=== PATIENT | male | born 1955 | race Caucasian/White ===

== ENCOUNTER 2020-07-21 13:21 | Emergency (ER) | payer MEDICAID, SELFPAY ==
--- NOTE | ~2020-07-21 | XR_ITS ---
EXAMINATION: XR CHEST CLINICAL INFORMATION: Cough. History of recent overdose. COMPARISON: Previous chest x-ray April 2013 TECHNIQUE: Frontal view of the chest was obtained. FINDINGS: No significant abnormality is noted involving the heart, lungs, mediastinum, bony thorax or soft tissues. XR/XR chest 1V IMPRESSION: Unremarkable examination.
--- NOTE | ~2020-07-21 | CT_ITS ---
EXAMINATION: CT HEAD WITHOUT CONTRAST CLINICAL INFORMATION: Fall COMPARISON: None TECHNIQUE: Contiguous axial imaging was performed from the skull base to vertex without intravenous administration of contrast. This CT examination was performed using dose optimization techniques as appropriate, variously including the following: *Automated exposure control *Adjustment of mA and/or kV according to patient size (this includes techniques or standardized protocols for targeted exams where dose is matched to indication/reason for exam; i.e. extremities or head) *Use of iterative reconstruction technique DLP: 791 mGy-cm FINDINGS: There is no evidence of an extra-axial collection. There is no evidence of intra-axial or extra-axial hemorrhage. There are postsurgical changes with aneurysm clips in the region of the left LANDON and MCA. There is old infarct or encephalomalacia seen left frontal and temporal lobes and left basal ganglia. There is ex vacuo dilatation of the frontal horn of the left ventricle. The ventricles and extra-axial CSF spaces are otherwise appropriate. There is a new area low-attenuation seen in the subcortical white matter of the left frontal and anterior parietal lobe with small calcification suggestive of an infarct. This appears old but is new in the intervertebral from 2017 exam. No mass, mass effect or acute infarct is seen. There are left temporal and frontal bone craniotomy defect are unchanged. No skull fracture is seen. There are mild inflammatory changes seen in the right frontal and bilateral ethmoid sinuses. Visualized mastoid air cells, paranasal sinuses and middle ears are otherwise clear. CT/CT head/brain wo con IMPRESSION: No acute findings. Postsurgical change with aneurysm clips in the region of the left LANDON and MCA and old infarct or encephalomalacia in the left frontal and temporal lobes and left basal ganglia unchanged from previous exam. Infarct in the left posterior frontal or anterior parietal lobe with a small calcification that does not appear acute but is new in the interval from 2017 exam.
--- NOTE | 2020-07-21 13:36 | ED_ITS ---
HPI - Overdose General Chief Complaint: Overdose Stated Complaint: unresponsive--narcan effective Time Seen by Provider: 07/21/20 13:36 Source: patient, EMS and facilities locator Mode of arrival: EMS Limitations: no limitations History of Present Illness MD complaint: accidental overdose Onset (ago): minute(s) Timing confirmed by: other Context: Accidental Overdose: wanted to get high and uncertain what happened Associated symptoms: other (bystanders saw him fall while working - admin 4mg IN Narcan and he woke up immediately) Treatments Prior to Arrival: narcan Related Data Allergies Allergy/AdvReac Type Severity Reaction Status Date / Time aspirin [ASA] Allergy Unknown UNKNOWN Unverified 10/30/19 18:56 Review of Systems Review of Systems: Constitutional : No Weight loss, No Fever, No Chills, No Fatigue, No Malaise ENT/Mouth : No sore throat, No Rhinorrhea Eyes: No Eye Pain, No Swelling, No Redness Cardiovascular : No Chest Pain, No SOB, No Dyspnea on Exertion, No Orthopnea, No Edema, No Palpitations Respiratory : No Cough, No Sputum, No Wheezing Gastrointestinal : No Nausea, No Vomiting, No Diarrhea, No Constipation, No abdominal Pain, No Hematochezia, No Melena Genitourinary : No Dysuria, No Urinary Frequency, No Hematuria, Musculoskeletal : No joint pain, No Myalgias, No Joint Swelling Skin : No Skin Lesions, No rash Neuro : No Weakness, No Numbness, No Dizziness, No Headache Psych : No Anxiety/Panic, No Depression Heme/Lymph: No Bruising, No Bleeding,No Lymphadenopathy Endocrine : No Polyuria, No Polydipsia All other systems reviewed and are negative [facility] Past Medical History Attestation statement: The following information was validated with the patient. Medical History CVA (cerebral vascular accident) HTN (hypertension) Migraines Seizure Surgical History H/O craniotomy Social History Social History (Updated 07/21/20 @ 13:41 by Stormy Fowler DO) Patient Tobacco Use Status: Current everyday Tobacco user Substance Use Type: Marijuana and Opiates Advance Directives: No Advance Directives Information Provided: No Physical Exam Vital Signs: Vital Signs: Last Vital Signs Pulse 78 07/21/20 15:49 Resp 18 07/21/20 15:49 BP 94/57 L 07/21/20 15:49 Pulse Ox 94 07/21/20 15:49 Body Mass Index 32.5 Appearance: Alert. Oriented X3. No acute distress. Eyes: Pupils equal, round and reactive to light. ENT: Pharynx normal. Neck: Normal inspection. Neck supple. CVS: Normal heart rate and rhythm. Pulses normal. Respiratory: No respiratory distress. Breath sounds normal. Abdomen: Soft and nontender. Skin: Skin warm and sweaty. Normal skin color. Normal skin turgor. Extremities: No lower extremity edema. No calf ttp Neuro: Oriented X 3. R sided hemiparesis No sensory deficit. Course Course Course Narrative: sats are low and lung sounds diminished neb and CXR ordered, he is awake at this time looking around sats seem improved, BP running low but MAP good, still slightly sleepy 94% on RA currently signed out pending full clinical sobriety MDM - Overdose MDM Narrative Medical decision making narrative: 64 yo male with hx of HTN, seizures, migraines, CVA with R sided hemiparesis admits to snorting something and then bystanders saw him fall while walking responded well to IN narcan, he is not sure if he is on blood thinners but he notes he has had multiple strokes in the past, his main complaint is that he was worried he stole the large amount of watt he had in his wallet - it is there on arrival to ED, will obtain CT head to r/o ICH, observe Discharge Plan Discharge Clinical Impression: Drug overdose Patient Disposition: Home, Self-Care Instructions: Adult Overdose (ED) Additional Instructions: return to ED for any worsening symptoms or concerns stop doing drugs Print Language: English
[2020-07-21 13:54] VITALS: BP 102/77; BP 150/70; PULSE 100; PULSE 102; RESP 16; O2SAT 90; O2SAT 95; BMI 32.5
[2020-07-21] MEDS: Albuterol Sulfate (0.083%) 2.5 MG/3 ML VIAL.NEB INHALE (14:05)
[2020-07-21 14:07] VITALS: PULSE 81; O2SAT 88
[2020-07-21 15:49] VITALS: BP 94/57; PULSE 78; RESP 18; O2SAT 94
--- NOTE | 2020-07-21 17:31 | PC.NURSE ---
attempted to ambulate patient to hallway bed. client was 2 assist very unsteady on feet. client had previous hx of stroke. client states he usually uses cane which he does not have with him. major fall risk. dr reeder made aware that client will probably need PT/OT. client given soft food at this time due to hx of stroke difficulty swallowing.
--- NOTE | 2020-07-21 17:58 | MHC.RECOVSUP ---
? Reason for consult Recovery Support o Current location: ED6 o Identified substance use concern: Heroin - Overdose - Support ? Intervention: o <del>ATS</del> <del>bed</del> <del>search</del> <del>started/completed/in</del> <del>process</del> <del>o</del> <del>MAT</del> <del>started</del> <del>or</del> <del>to</del> <del>be</del> <del>started</del> <del>o</del> <del>Community</del> <del>resources</del> <del>provided</del> <del>o</del> <del>Harm</del> <del>reduction</del> <del>discussion</del> ? Plan: <del>o</del> <del>Referral</del> <del>to</del> <del>[facility]</del> <del>o</del> <del>Bed</del> <del>search</del> <del>in</del> <del>progress</del> <del>to</del> <del>o</del> <del>Follow</del> <del>up</del> <del>tomorrow</del> <del>o</del> <del>Patient</del> <del>awaiting</del> <del>crisis</del> <del>evaluation</del> <del>o</del> <del>Patient</del> <del>to</del> <del>follow</del> <del>up</del> <del>with</del> <del>[facility]</del> <del>after</del> <del>discharge</del> ? Additional information: unable to communicate with patient at the moment..
--- NOTE | 2020-07-21 18:26 | PHA.MEDREC ---
Pharmacy Consult ? Medication Reconciliation Pharmacy unable to complete the medication reconciliation. pt is unable to verify current meds, states that he was in a hospital in [facility] but unable to remember name. Med rec was pulled from [facility] last fill was 06/16/2019. Provider notified
--- NOTE | 2020-07-21 18:47 | PC.NURSE ---
CLIENT HAD SMALL EPISODE OF VOMITTING. THIS RN WITNESSED HIM STICK HIS FINGER DOWN HIS THROAT. CLIENT DENIED WANTING ANYTHING FOR NAUSEA.
[2020-07-21 19:18] VITALS: BP 118/69; PULSE 94; RESP 16; O2SAT 94
[2020-07-21 20:26] VITALS: BP 113/83; PULSE 95; RESP 18; O2SAT 95
--- NOTE | 2020-07-21 20:55 | PC.NURSE ---
client requesting something for headache. neuro intact for baseline
--- NOTE | 2020-07-21 21:01 | PC.NURSE ---
DR SÁNCHEZ AWARE THAT CLIENT WANTS SOMETHING FOR HEADACHE AND HIS NIGHT TIME MEDICATIONS. MEDICATIONS HAVE BEEN VERIFIED BY PHARMACY AT THIS TIME.
[2020-07-21] MEDS: Acetaminophen 325 MG TABLET 650 MG PO (21:32)
[2020-07-21 22:28] VITALS: BP 128/78; PULSE 78; RESP 18; O2SAT 95
--- NOTE | 2020-07-21 22:35 | MHC.CM.ED ---
CM met with patient at request of Dr. Looney. Pt here for drug OD. Received bystander narcan. Pt [place] speaking and ophthalmic medical technician used for conversation.Pt denies drug use and states he tripped. Pt has long standing hx of polysubstance abuse. Pt has had 2 strokes and pt states he was treated at the [facility] and then transferred to [facility] for rehab. Pt states he was there for 10 months and was d/c 4 days ago. Pt is homeless. Staying at [facility]. Has a business card for the senior living. States he was living with his son prior to his stroke, but son has moved and the telephone number on file is not correct. Pt does not know son's telephone number. CM called the number on file. It went to [employer]. Message left to return call. Olivier Ch Jr - [phone] is the number we have on file. [address] [phone]. Consult was obtained at 2200. Interview completed at 2230. Will need to call SNF in am to obtain records, contact information and insurance information. Pt denies use of DME or any services. Pt states he has no other family to contact. Pt aware that PT will evaluate him in the am. Pt states he saw a doctor last week at [facility], however, he also said that he was d/c from [facility] 4 days ago. Pt was very rambling in his speech and had some difficulty answering questions. Pt states he takes medications, but does not know what they are. States his medications are in a bag at the [facility]. Pt stated many times that he plans to go to [place] to see his parents before they . Pt is unsure if he has [employer] or any insurance. SS# [id number]. Registration ran pt SS number and system tells him the pt is not eligible for [facility]. Dr. Chin is aware of above. CM will follow for d/c needs.
--- NOTE | 2020-07-21 23:34 | PC.NURSE ---
PT REFUSED COVID SWAB SEVERAL TIMES.
--- NOTE | 2020-07-22 02:27 | PC.NURSE ---
PT NOW AMBULATORY WITHOUT ASSIST. PT REFUSING TO SIT BACK IN CHAIR, TALKING WITH PT IN ROOM 8.
[2020-07-22 02:49] LABS: Basophils Percent Auto 0.1 % (0-2); Hematocrit 37.8 % (42-52); Hemoglobin 12.2 g/dl (14.0-18.0); Imm Gran Abs Auto 0.04 X10*3/uL (0.00-0.03); Imm Gran Pct Auto 0.2 % (0.0-0.4); Lymphocytes Absolute Auto 0.5 X10*3/uL (1.2-4.9); Lymphocytes Percent Auto 2.8 % (20-40); MANUAL DIFF FLAG SCAN; Mean Corpuscular HGB Conc 32.3 g/dl (31.0-36.0); Mean Corpuscular Hemoglobin 29.9 pg (27.0-33.0); Mean Corpuscular Volume 92.6 fL (80-98); Mean Platelet Volume 10.2 fL (9.4-12.4); Monocytes Absolute Auto 0.6 X10*3/uL (0.1-1.2); Monocytes Percent Auto 3.9 % (2-11); Neutrophils Absolute Auto 15.2 X10*3/uL (2.0-8.3); Platelet Count 187 X10*3/uL (160-400); Red Blood Count 4.08 X10*6/uL (4.60-5.80); Red Cell Distribution Width 14.1 % (11.0-16.0); SCAN SMEAR FLAG 1; White Blood Count 16.4 X10*3/uL (4.8-10.8)
[2020-07-22 03:06] LABS: SLIDE REVIEW VERIFIED
[2020-07-22 03:07] LABS: Ammonia 32 umol/L (13-55)
[2020-07-22 03:08] LABS: Ethanol < 10 mg/dL
[2020-07-22 03:10] LABS: Alanine Aminotransferase 26 U/L (0-40); Albumin Level 4.6 g/dL (3.5-5.0); Alkaline Phosphatase 65 U/L (39-117); Anion Gap 13 (12-20); Aspartate Amino Transferase 20 U/L (5-37); Bilirubin Direct 0.4 mg/dL (0.0-0.5); Bilirubin Total 0.9 mg/dL (0.0-1.0); Blood Urea Nitrogen 23 mg/dL (9-16); Calcium 9.1 mg/dL (8.4-10.2); Carbon Dioxide 24 mmol/L (22-29); Chloride 105 mmol/L (96-108); Creatinine Clr Calc Pharmacy 81.9; Estimated Glomerular Filt Rate > 60; Glucose Random 169 mg/dL (60-115); Potassium 4.3 mmol/L (3.3-5.1); Sodium 138 mmol/L (135-145)
[2020-07-22 05:48] VITALS: BP 146/72; PULSE 68; RESP 16; O2SAT 95
[2020-07-22 07:11] VITALS: BP 146/72; PULSE 68; O2SAT 95
--- NOTE | 2020-07-22 07:56 | PC.NURSE ---
Physical therapy to bedside for evaluation and will recommend short term rehab. science interpreter to chairside and pt declines rehab placement and wants to leave. Pt confirms he is homeless and wants to visit his mother in [place]. Pt confirms baseline right sided weakness from prior CVA.
[2020-07-22] MEDS: Acetaminophen 325 MG TABLET 975 MG PO (08:12)
--- NOTE | 2020-07-22 08:41 | PC.NURSE ---
Dr Kianna henry with acidizer to prior to ?discharge as pt declines short term rehab placement
[2020-07-22 08:47] VITALS: BP 110/72; PULSE 74; RESP 16; O2SAT 97
--- NOTE | 2020-07-22 08:56 | PC.NURSE ---
self pay taxi, this rn called, pt awaiting in [place]
--- NOTE | 2020-07-22 12:37 | MHC.CM.ED ---
Physical therapy eval completed. Short term rehab is recommended. Received notification that patient is refusing rehab and left ER.
== END 2020-07-22 08:57 | disposition home or self-care (01) ==
PROVIDERS: Emergency Medicine; Emergency Provider Emergency Medicine Emergency Medical Services
DX: T50.901A Poisoning by unspecified drugs, medicaments and biological substances, accidental (unintentional), initial encounter (principal); Y92.89 Other specified places as the place of occurrence of the external cause; R05 Cough; I10 Essential (primary) hypertension; I69.351 Hemiplegia and hemiparesis following cerebral infarction affecting right dominant side; R26.81 Unsteadiness on feet; Z59.0 Homelessness
CPT/HCPCS: 36415; 70450; 71045; 80048; 80076; 82077; 82140; 85025; 94640; 97162; 99285

== ENCOUNTER 2020-10-23 13:50 | Emergency (ER) | payer MEDICARE, MEDICAID, SELFPAY ==
--- NOTE | ~2020-10-23 | XR_ITS ---
EXAMINATION: XR RIBS, LEFT CLINICAL INFORMATION: Left rib tenderness status post fall. COMPARISON: 07/21/2020 chest radiograph. TECHNIQUE: 3 views of the left ribs were obtained along with a PA view of the chest. A skin marker was placed over the anterolateral left ninth rib. FINDINGS: Lungs are clear. No consolidation, pneumothorax, or pleural effusion. The cardiomediastinal silhouette and pulmonary vasculature are normal. Osseous structures are unremarkable. Ribs are intact. No fractures are identified. XR/XR ribs LT min 3V w CXR1V IMPRESSION: 1. No acute cardiopulmonary process. 2. No overt acute left rib fracture.
--- NOTE | ~2020-10-23 | CT_ITS ---
EXAMINATION: CT HEAD WITHOUT CONTRAST CLINICAL INFORMATION: EtOH, fall and [id number] versus seizure. COMPARISON: CT brain 6922 1 TECHNIQUE: Contiguous axial imaging was performed from the skull base to vertex without intravenous administration of contrast. This CT examination was performed using dose optimization techniques as appropriate, variously including the following: *Automated exposure control *Adjustment of mA and/or kV according to patient size (this includes techniques or standardized protocols for targeted exams where dose is matched to indication/reason for exam; i.e. extremities or head) *Use of iterative reconstruction technique DLP: 841 mGy-cm FINDINGS: There is no acute intra-axial, extra-axial bleed, masses, collection midline shift. There is a left anterior frontal temporal lobe encephalomalacia and temporal craniotomy change from previous intervention. Also visualized is left basal ganglia old infarct. An aneurysm clip is seen in the left MCA calcification and left A2 anterior cerebral arteries segment.. No recurrent mass effect seen. The lateral ventricles are asymmetrical with ex vacuo dilatation of left frontal horn lateral ventricle. The ventricles are normal in size. There is no abnormal attenuation within the brain parenchyma. The osseous structures and soft tissues are normal. The mastoid air cells and visualized portions of the paranasal sinuses are well aerated. CT/CT head/brain wo con IMPRESSION: No acute intracranial process seen. There are 2 left aneurysm clips with left frontoparietal encephalomalacia and temporal lobe craniotomy changes. Small left basal ganglia old infarct.
[2020-10-23 13:56] VITALS: BP 118/91; PULSE 112; RESP 14; TEMP 36.7; O2SAT 94; BMI 25.8
--- NOTE | 2020-10-23 13:59 | ECG_ITS ---
Test Reason : SYNCOPE Blood Pressure : / mmHG Vent. Rate : 082 BPM Atrial Rate : 082 BPM P-R Int : 184 ms QRS Dur : 114 ms QT Int : 416 ms P-R-T Axes : 030 -42 036 degrees QTc Int : 486 ms Normal sinus rhythm Left axis deviation Prolonged QT Abnormal ECG When compared with ECG of 05-MAY-2016 16:46, Heart rate has increased QT has lengthened Referred By: Rani Looney Electronically Signed By:LORIE RALPH
--- NOTE | 2020-10-23 14:03 | ED.GENADULT ---
HPI - General Adult General Chief complaint: ETOH/Substance Use Stated complaint: OVERDOSE Time Seen by Provider: 10/23/20 13:51 Source: patient and EMS Mode of arrival: EMS Limitations: no limitations History of Present Illness HPI narrative: Patient comes to the emergency room by EMS. Patient was found unresponsive, bystanders gave him 60 mg of intranasal Narcan. Patient did wake up. Patient denies using drugs other than marijuana, admits to drinking alcohol. Patient complaining of a headache. Of note, patient has had similar episodes in the past. 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 Previously, patient was on Depakote. alcohol level were negative, urine toxicology was positive for benzodiazepines. Related Data Home Medications Medication Instructions Recorded Confirmed atenolol 50 mg tablet 50 mg PO DAILY 07/21/20 chlorthalidone 50 mg tablet 50 mg PO DAILY 07/21/20 diltiazem HCl 120 mg 120 mg PO DAILY 07/21/20 capsule,extended release 24 hr fluoxetine 20 mg capsule 40 mg PO DAILY 07/21/20 folic acid 1 mg tablet 1 mg PO DAILY 07/21/20 gabapentin 300 mg capsule 300 mg PO BEDTIME 07/21/20 lisinopril 20 mg tablet 20 mg PO DAILY 07/21/20 multivitamin 1 tab PO DAILY 07/21/20 thiamine HCl (vitamin B1) 100 mg 100 mg PO DAILY 07/21/20 tablet (Vitamin B-1) zolpidem 10 mg tablet (Ambien) 10 mg PO BEDTIME 07/21/20 Allergies Allergy/AdvReac Type Severity Reaction Status Date / Time aspirin [ASA] Allergy Unknown UNKNOWN Unverified 10/30/19 18:56 Review of Systems Review of Systems: Constitutional : No Weight loss, No Fever, No Chills, No Night Sweats, No Fatigue, No Malaise ENT/Mouth : No Hearing loss, No Ear Pain, No Nasal Congestion, No Sinus Pain, No Hoarseness, No sore throat, No Rhinorrhea, No Swallowing Difficulty Eyes: No Eye Pain, No Swelling, No Redness, No Foreign Body, No Discharge, No Vision Changes Cardiovascular : No Chest Pain, No SOB, No Dyspnea on Exertion, No Orthopnea, No Edema, No Palpitations Respiratory : No Cough, No Sputum, No Wheezing, No Smoke Exposure, No Dyspnea Gastrointestinal : No Nausea, No Vomiting, No Diarrhea, No Constipation, No abdominal Pain, No Hematochezia, No Melena Genitourinary : no irregular bleeding, No Dysuria, No Urinary Frequency, No Hematuria, No Urinary Incontinence, No Urgency, No Flank Pain, No Urinary Flow Changes, No Hesitancy Musculoskeletal : No joint pain, No Myalgias, No Joint Swelling Skin : No Skin Lesions, No rash Neuro : No Weakness, No Numbness, No Paresthesias, found unconscious, complaining of a headache Psych : No Anxiety/Panic, No Depression, No SI/HI/AH/VH, No Social Issues, Heme/Lymph: No Bruising, No Bleeding,No Lymphadenopathy Endocrine : No Polyuria, No Polydipsia, No Temperature Intolerance [facility] Past Medical History Medical History CVA (cerebral vascular accident) HTN (hypertension) Migraines Seizure Surgical History H/O craniotomy Social History Social History (Updated 07/21/20 @ 13:41 by tSormy Fowler DO) Alcohol intake: current Patient Tobacco Use Status: Current everyday Tobacco user Use of substances other than those prescribed or required for medical reasons: Refusing to respond Substance Use Type: Marijuana and Opiates Advance Directives: No Advance Directives Information Provided: No Physical Exam Vital Signs: Vital Signs: Last Vital Signs Temp 98.0 F 10/23/20 13:56 Pulse 112 H 10/23/20 13:56 Resp 14 10/23/20 13:56 BP 118/91 H 10/23/20 13:56 Pulse Ox 94 10/23/20 13:56 Body Mass Index 25.8 Const: Other: Appearance: Alert. Oriented X3. Vomiting Eyes: Pupils equal, round and reactive to light. ENT: Pharynx normal. Neck: Normal inspection. Neck supple. No lymph nodes noted. No crepitus CVS: Normal heart rate and rhythm. Pulses normal. Normal S1 and S2 Respiratory: No respiratory distress. Breath sounds normal. No Wheezing. No rales Abdomen: Soft and nontender. No rigidity. No distention. Skin: Skin warm , slightly diaphoretic, slightly pale Extremities: No lower extremity edema. No Lacerations. No Rash Neuro: Oriented X 3. No motor deficit. No sensory deficit. Moving all extermities. No slurred speech. Course Course Course Narrative: At this time, it is unclear what really happened to the patient, patient has history of seizures. Patient admits to using alcohol. We will go ahead and do a cardiac/neurological workup Patient's lactic acid is 6.0, patient likely did have a seizure. Sepsis is not suspected. Per previous records, patient is supposed to be taking 500 mg Depakote twice a day. When I spoke to the patient, patient states that he is not aware that he is supposed to be taking medication for seizures. However, per previous notes, this has happened in the past, patient is as if he is taking seizure medications and response and he is not aware of this. Patient was given 2 L of normal saline and p.o. divalproex. A prescription has been left ready for the patient. At this time, patient is alert and oriented x3, not postictal. Drugs of abuse and lactic acid 2. Is pending. Sign-out given to Dr. Hutchison Medical Decision Making Lab Data Result diagrams: 10/23/20 14:16 10/23/20 14:16 Labs: Lab Results 10/23/20 10/23/20 10/23/20 Range/Units 14:08 14:16 14:16 WBC 6.6 (4.8-10.8) X10*3/uL RBC 4.34 L (4.60-5.80) X10*6/uL Hgb 12.8 L (14.0-18.0) g/dl Hct 40.0 L (42-52) % MCV 92.2 (80-98) fL MCH 29.5 (27.0-33.0) pg MCHC 32.0 (31.0-36.0) g/dl RDW 14.0 (11.0-16.0) % Plt Count 210 (160-400) X10*3/uL MPV 10.3 (9.4-12.4) fL Immature Gran % (Auto) 0.5 H (0.0-0.4) % Neut % (Auto) 67.0 (45-73) % Lymph % (Auto) 21.2 (20-40) % Rich % (Auto) 8.7 (2-11) % Eos % (Auto) 1.8 (0-4) % Baso % (Auto) 0.8 (0-2) % Lymph # (Auto) 1.4 (1.2-4.9) X10*3/uL Rich # (Auto) 0.6 (0.1-1.2) X10*3/uL Eos # (Auto) 0.1 (0.0-0.4) X10*3/uL Baso # (Auto) 0.1 (0.0-0.2) X10*3/uL Abs Immat Gran (auto) 0.03 (0.00-0.03) X10*3/uL Absolute Neuts (auto) 4.5 (2.0-8.3) X10*3/uL Absolute Nucleated RBC 0.000 (0.0-0.012) X10*3/uL Nucleated RBC % (auto) 0.0 (0.0-0.2) /100WBC PT (9.9-13.0) SEC INR (0.9-1.1) Sodium 140 (135-145) mmol/L Potassium 3.4 D (3.3-5.1) mmol/L Chloride 104 (96-108) mmol/L Carbon Dioxide 18 L (22-29) mmol/L Anion Gap 21 H (12-20) BUN 19 H (9-16) mg/dL Creatinine 1.15 (0.5-1.4) mg/dL Estim Creat Clear Calc 66.1 Estimated GFR > 60 POC Glucose 141 H (60-115) mg/dL Random Glucose 144 H (60-115) mg/dL Lactic Acid (0.5-2.0) mmol/L Calcium 9.9 D (8.4-10.2) mg/dL Total Bilirubin 0.7 (0.0-1.0) mg/dL Direct Bilirubin 0.3 (0.0-0.5) mg/dL AST 21 (5-37) U/L ALT 16 (0-40) U/L Alkaline Phosphatase 65 (39-117) U/L Troponin I High Sens (<3.5-35.0) ng/L Total Protein 6.8 (6.5-8.0) g/dL Albumin 4.3 (3.5-5.0) g/dL Ethyl Alcohol mg/dL 10/23/20 10/23/20 10/23/20 Range/Units 14:16 14:16 14:29 WBC (4.8-10.8) X10*3/uL RBC (4.60-5.80) X10*6/uL Hgb (14.0-18.0) g/dl Hct (42-52) % MCV (80-98) fL MCH (27.0-33.0) pg MCHC (31.0-36.0) g/dl RDW (11.0-16.0) % Plt Count (160-400) X10*3/uL MPV (9.4-12.4) fL Immature Gran % (Auto) (0.0-0.4) % Neut % (Auto) (45-73) % Lymph % (Auto) (20-40) % Rich % (Auto) (2-11) % Eos % (Auto) (0-4) % Baso % (Auto) (0-2) % Lymph # (Auto) (1.2-4.9) X10*3/uL Rich # (Auto) (0.1-1.2) X10*3/uL Eos # (Auto) (0.0-0.4) X10*3/uL Baso # (Auto) (0.0-0.2) X10*3/uL Abs Immat Gran (auto) (0.00-0.03) X10*3/uL Absolute Neuts (auto) (2.0-8.3) X10*3/uL Absolute Nucleated RBC (0.0-0.012) X10*3/uL Nucleated RBC % (auto) (0.0-0.2) /100WBC PT 12.4 (9.9-13.0) SEC INR 1.1 (0.9-1.1) Sodium (135-145) mmol/L Potassium (3.3-5.1) mmol/L Chloride (96-108) mmol/L Carbon Dioxide (22-29) mmol/L Anion Gap (12-20) BUN (9-16) mg/dL Creatinine (0.5-1.4) mg/dL Estim Creat Clear Calc Estimated GFR POC Glucose (60-115) mg/dL Random Glucose (60-115) mg/dL Lactic Acid (0.5-2.0) mmol/L Calcium (8.4-10.2) mg/dL Total Bilirubin (0.0-1.0) mg/dL Direct Bilirubin (0.0-0.5) mg/dL AST (5-37) U/L ALT (0-40) U/L Alkaline Phosphatase (39-117) U/L Troponin I High Sens 4.9 (<3.5-35.0) ng/L Total Protein (6.5-8.0) g/dL Albumin (3.5-5.0) g/dL Ethyl Alcohol < 10 mg/dL 10/23/20 Range/Units 14:29 WBC (4.8-10.8) X10*3/uL RBC (4.60-5.80) X10*6/uL Hgb (14.0-18.0) g/dl Hct (42-52) % MCV (80-98) fL MCH (27.0-33.0) pg MCHC (31.0-36.0) g/dl RDW (11.0-16.0) % Plt Count (160-400) X10*3/uL MPV (9.4-12.4) fL Immature Gran % (Auto) (0.0-0.4) % Neut % (Auto) (45-73) % Lymph % (Auto) (20-40) % Rich % (Auto) (2-11) % Eos % (Auto) (0-4) % Baso % (Auto) (0-2) % Lymph # (Auto) (1.2-4.9) X10*3/uL Rich # (Auto) (0.1-1.2) X10*3/uL Eos # (Auto) (0.0-0.4) X10*3/uL Baso # (Auto) (0.0-0.2) X10*3/uL Abs Immat Gran (auto) (0.00-0.03) X10*3/uL Absolute Neuts (auto) (2.0-8.3) X10*3/uL Absolute Nucleated RBC (0.0-0.012) X10*3/uL Nucleated RBC % (auto) (0.0-0.2) /100WBC PT (9.9-13.0) SEC INR (0.9-1.1) Sodium (135-145) mmol/L Potassium (3.3-5.1) mmol/L Chloride (96-108) mmol/L Carbon Dioxide (22-29) mmol/L Anion Gap (12-20) BUN (9-16) mg/dL Creatinine (0.5-1.4) mg/dL Estim Creat Clear Calc Estimated GFR POC Glucose (60-115) mg/dL Random Glucose (60-115) mg/dL Lactic Acid 6.0 H* (0.5-2.0) mmol/L Calcium (8.4-10.2) mg/dL Total Bilirubin (0.0-1.0) mg/dL Direct Bilirubin (0.0-0.5) mg/dL AST (5-37) U/L ALT (0-40) U/L Alkaline Phosphatase (39-117) U/L Troponin I High Sens (<3.5-35.0) ng/L Total Protein (6.5-8.0) g/dL Albumin (3.5-5.0) g/dL Ethyl Alcohol mg/dL Imaging Data CT scan - head: Radiologist's impression: There is no acute intra-axial, extra-axial bleed, masses, collection midline shift. There is a left anterior frontal temporal lobe encephalomalacia and temporal craniotomy change from previous intervention. Also visualized is left basal ganglia old infarct. An aneurysm clip is seen in the left MCA calcification and left A2 anterior cerebral arteries segment.. No recurrent mass effect seen. The lateral ventricles are asymmetrical with ex vacuo dilatation of left frontal horn lateral ventricle. The ventricles are normal in size. There is no abnormal attenuation within the brain parenchyma. The osseous structures and soft tissues are normal. The mastoid air cells and visualized portions of the paranasal sinuses are well aerated. ? CT/CT head/brain wo con IMPRESSION: No acute intracranial process seen. ? There are 2 left aneurysm clips with left frontoparietal encephalomalacia and temporal lobe craniotomy changes. Small left basal ganglia old infarct. ECG Data Attestation: I personally reviewed and interpreted this ECG as follows: (Sinus rhythm, heart rate 82, segment depression or elevation, no T-wave inversion, QTC 486) Discharge Plan Discharge Clinical Impression: Seizure Prescriptions: No Action multivitamin Tablet 1 tab PO DAILY RF: 0 lisinopril 20 mg Tablet 20 mg PO DAILY RF: 0 thiamine HCl (vitamin B1) [Vitamin B-1] 100 mg Tablet 100 mg PO DAILY RF: 0 chlorthalidone 50 mg Tablet 50 mg PO DAILY RF: 0 gabapentin 300 mg Capsule 300 mg PO BEDTIME RF: 0 diltiazem HCl 120 mg Capsule,Extended Release 24hr 120 mg PO DAILY RF: 0 folic acid 1 mg Tablet 1 mg PO DAILY RF: 0 zolpidem [Ambien] 10 mg Tablet 10 mg PO BEDTIME RF: 0 fluoxetine 20 mg Capsule 40 mg PO DAILY RF: 0 atenolol 50 mg Tablet 50 mg PO DAILY RF: 0
[2020-10-23 14:11] LABS: Glucose, Whole Blood 141 mg/dL (60-115)
[2020-10-23 14:19] LABS: MANUAL DIFF FLAG NO
[2020-10-23] MEDS: ondansetron HCL 4 MG/2 ML VIAL IVPUSH (14:20)
[2020-10-23] MEDS: 0.9 % Sodium Chloride 1,000 ML 999 ML IVCONT ×2 (14:20→16:43)
[2020-10-23 14:22] LABS: Basophils Absolute Auto 0.1 X10*3/uL (0.0-0.2); Basophils Percent Auto 0.8 % (0-2); Eosinophils Absolute Auto 0.1 X10*3/uL (0.0-0.4); Eosinophils Percent Auto 1.8 % (0-4); Hemoglobin 12.8 g/dl (14.0-18.0); Imm Gran Abs Auto 0.03 X10*3/uL (0.00-0.03); Imm Gran Pct Auto 0.5 % (0.0-0.4); Lymphocytes Absolute Auto 1.4 X10*3/uL (1.2-4.9); Lymphocytes Percent Auto 21.2 % (20-40); Mean Corpuscular Hemoglobin 29.5 pg (27.0-33.0); Mean Corpuscular Volume 92.2 fL (80-98); Mean Platelet Volume 10.3 fL (9.4-12.4); Monocytes Absolute Auto 0.6 X10*3/uL (0.1-1.2); Monocytes Percent Auto 8.7 % (2-11); Neutrophils Absolute Auto 4.5 X10*3/uL (2.0-8.3); Platelet Count 210 X10*3/uL (160-400); Red Blood Count 4.34 X10*6/uL (4.60-5.80); White Blood Count 6.6 X10*3/uL (4.8-10.8)
[2020-10-23 14:42] LABS: Troponin-I High Sensitivity 4.9 ng/L (<3.5-35.0)
[2020-10-23 14:43] LABS: INTERNATIONAL NORM RATIO 1.1 (0.9-1.1); Prothrombin Time 12.4 SEC (9.9-13.0)
[2020-10-23 14:44] LABS: Ethanol < 10 mg/dL
[2020-10-23 14:47] LABS: Alanine Aminotransferase 16 U/L (0-40); Albumin Level 4.3 g/dL (3.5-5.0); Alkaline Phosphatase 65 U/L (39-117); Anion Gap 21 (12-20); Aspartate Amino Transferase 21 U/L (5-37); Bilirubin Direct 0.3 mg/dL (0.0-0.5); Bilirubin Total 0.7 mg/dL (0.0-1.0); Blood Urea Nitrogen 19 mg/dL (9-16); Calcium 9.9 mg/dL (8.4-10.2); Carbon Dioxide 18 mmol/L (22-29); Chloride 104 mmol/L (96-108); Creatinine Clr Calc Pharmacy 66.1; Estimated Glomerular Filt Rate > 60; Glucose Random 144 mg/dL (60-115); Potassium 3.4 mmol/L (3.3-5.1); Sodium 140 mmol/L (135-145); Total Protein 6.8 g/dL (6.5-8.0)
[2020-10-23 16:34] LABS: Reflex Lactate? Lactic Acid Added
[2020-10-23 17:27] LABS: ~Lactic Acid-LAB USE ONLY 2.3 mmol/L (0.5-2.0)
[2020-10-23] MEDS: Divalproex Sodium 500 MG TABLET.DR 1000 MG PO (17:30)
[2020-10-23 19:04] LABS: Reflex Lactate? 2 Y
--- NOTE | 2020-10-23 19:38 | PC.NURSE ---
note incomplete but this RN had to switch screens to answer Dr Hutchison if pt had rec'd chest xr per Dr Looney' orders. Pt with seizure hx and had seizure today witnessed by family. This RN to Dr Hutchison who rec'd sign out from Dr Looney. Dr Hutchison reports he will assess pt and dispo pt. While this RN at bedside, Dr Hutchison arrives at bedside. Per Dr Hutchison, plan for chest XR and PO pain meds. Pt expresses understanding, is agreeable to plan. Pt remains on bedside cardiac rehabilitation specialist, VSS. Per Dr Hutchison, no need to finish IVF at this time as provider believes lactic was elevated 2/2 seizure activity. Stretcher in low locked position, rails raised, call farley within reach Original Note: This RN rec'd report from Olimpia Garza RN. Per Olimpia in report, pt removed PIV prior to completion of sepsis fluids. Pt's lactic had been down trending from 6 to 2.3 after one liter. Pt medicated with PO depakote This RN to bedside to assess pt and obtain repeat lactic. Initialized on 10/23/20 19:23 - END OF NOTE
[2020-10-23 19:40] VITALS: BP 140/84; PULSE 82; RESP 19; TEMP 36.6; O2SAT 97
[2020-10-23 19:49] LABS: Appearance Urine CLEAR; Color Urine YELLOW; Glucose Urine UA NEG (NEG); Leukocyte Esterase Urine NEG (NEG); Nitrite Urine NEG (NEG); Specific Gravity - Urine 1.025 (1.005-1.025); Urine Blood NEG (NEG); Urine Ketones 40 MG/DL (NEG); Urine Protein TRACE MG/DL (NEG-TRACE)
[2020-10-23 20:04] LABS: Amphetamine Screen Urine Not Detected (Not Detect); Barbiturates, Urine Not Detected (Not Detect); Benzodiazepines Screen Urine Not Detected (Not Detect); Cannabinoid Screen Urine POSITIVE (Not Detect); Cocaine Screen Urine POSITIVE (Not Detect); Fentanyl, urine POSITIVE (Not Detect); Opiate Screen Urine Not Detected (Not Detect); Phencyclidine Screen Urine Not Detected (Not Detect)
[2020-10-23 20:44] VITALS: BP 105/83; PULSE 75; RESP 17; O2SAT 97
[2020-10-23] MEDS: Acetaminophen 325 MG TABLET 975 MG PO (20:47)
[2020-10-23] MEDS: oxyCODONE HCl Immed Release 5 MG TABLET PO (20:48)
[2020-10-23] MEDS: Ondansetron ODT 4 MG TAB.RAPDIS TRANSLINGU (20:48)
[2020-10-23 22:39] VITALS: BP 127/76; PULSE 83; RESP 12; O2SAT 97
--- NOTE | 2020-10-23 22:40 | PC.NURSE ---
Dr Hutchison had gone to pt's bedside to inform pt about findings from today's visit and DC education/instructions. Per Dr Hutchison, pt had requested to stay overnight in hospital. Dr Hutchison informed pt he does not have a medical necessity to stay. Pt reports he does not have a ride home. This RN to bedside with paperwork and airset caster and asks pt to contact his family to provide a ride. Pt reports I don't like bothering people at this time of night. I'll stay in the waiting room. This RN to landing scaler Antonieta and informs her of situation. Per Antonieta, this rn to contact pt's emergency contact. This rn calls emergency contact listed in chart (pt's son) and contact does not answer. This RN leaves message for pt's son requesting he pick pt up when available. Per Antonieta, pt to wait in WR. This RN returned to bedside and informed pt of plan. Pt agreeable and states but before I go, I need to say a few things. Pt continues, saying he believes this rn to be mad at him. This RN explains that this RN is not mad at pt, and this RN apologizes to pt if that was been misconstrued. Pt continues I don't understand why you would send me home at this hour and not let me stay overnight. My insurance will pay for me to stay overnight due to my strokes and the fact that I'm in pain. This RN re-educates pt on safe DC per Dr Hutchison d/t benign findings on workup on today's visit. Pt expresses understanding and states but you're not listening. I want to stay overnight because it's late. I don't want to be sent home. This RN explains that insurance covers medical necessities which pt does not qualify for. RN outside of room contacts security to assist in DC. Security to bedside. FRANCINE Corral remains at bedside to assist in changing pt into own clothing and assisting into WC for ease of DC into WR. Pt able to stand and pivot with steady gait, does walk with slightly unsteady gait with cane at baseline 2/2 hx of CVA with R side deficits.
== END 2020-10-23 22:51 | disposition home or self-care (01) ==
PROVIDERS: Emergency Medicine; Emergency Provider Emergency Medicine Emergency Medical Services
DX: R56.9 Unspecified convulsions (principal); R51.9 Headache, unspecified; I10 Essential (primary) hypertension; F17.210 Nicotine dependence, cigarettes, uncomplicated; F14.90 Cocaine use, unspecified, uncomplicated; F12.90 Cannabis use, unspecified, uncomplicated; Z86.73 Personal history of transient ischemic attack (TIA), and cerebral infarction without residual deficits
CPT/HCPCS: 36415; 70450; 71101; 80048; 80076; 80307; 81003; 82077; 82947; 83605; 84484; 85025; 85610; 93005; 96361; 96374; 99284; 99285; J2405

== ENCOUNTER 2021-07-06 12:33 | Emergency (ER) | payer MEDICARE, MEDICAID, SELFPAY ==
--- NOTE | ~2021-07-06 | CT_ITS ---
EXAMINATION: CT HEAD WITHOUT CONTRAST CLINICAL INFORMATION: Headache COMPARISON: Prior head CT exams from 07/21/2020 and 10/23/2020 TECHNIQUE: Contiguous axial imaging was performed from the skull base to vertex without intravenous administration of contrast. This CT examination was performed using dose optimization techniques as appropriate, variously including the following: *Automated exposure control *Adjustment of mA and/or kV according to patient size (this includes techniques or standardized protocols for targeted exams where dose is matched to indication/reason for exam; i.e. extremities or head) *Use of iterative reconstruction technique DLP: 839 mGy-cm FINDINGS: Again noted are aneurysm clips in the region of the anterior cerebral artery junction with the anterior communicating artery, and in region of left middle cerebral artery. No acute intracranial hemorrhage, extra-axial fluid collection, focal mass effect or midline shift. There is chronic hypoattenuation from encephalomalacia/gliosis in the left frontal lobe that involves region of precentral gyrus of the frontal lobe. Also, there is chronic encephalomalacia in the anterior left temporal lobe peripheral to the MCA clip. Left frontotemporal craniotomy is noted. There is chronic mild parenchymal volume loss and chronic ex vacuo dilatation of the left frontal horn. Chronic mild small vessel ischemic changes within supratentorial white matter. Again noted is the wallerian degeneration as manifest by chronic mild atrophy of the left midbrain. No acute pathology in the posterior fossa. The cerebellar tonsils are in normal position. The visualized paranasal sinuses, mastoid air cells and middle ear cavities are well aerated. CT/CT head/brain wo con IMPRESSION: * No intracranial hemorrhage or other acute intracranial pathology compared to 10/23/2020. * There is an old infarct of the left frontal lobe. No acute infarcts are identified. * Other chronic findings include prior aneurysmal clipping, chronic volume loss involving left frontal and left temporal lobes and ex vacuo dilatation of the left frontal horn.
[2021-07-06 12:51] VITALS: BP 125/69; BP 160/90; PULSE 66; PULSE 90; RESP 16; TEMP 36.7; O2SAT 98; O2SAT 99; BMI 27.1
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
[2021-07-06] MEDS: Ketorolac Tromethamine 15 MG/ML VIAL IVPUSH (14:19)
[2021-07-06] MEDS: Acetaminophen 325 MG TABLET 650 MG PO (14:21)
[2021-07-06 15:03] VITALS: BP 128/72; PULSE 61; RESP 16; TEMP 36.9; O2SAT 97
--- NOTE | 2021-07-06 15:29 | PC.NURSE ---
pt has been stuck for blood and iv multiple times, provider aware. provider unable to get iv access w ultrasound guidance. medicated for pain, had ct scan. provider back at bedside to attempt iv access again.
[2021-07-06] MEDS: 0.9 % Sodium Chloride 1,000 ML 999 ML IV (15:36)
[2021-07-06] MEDS: Metoclopramide HCl 10 MG/2 ML VIAL IVPUSH (15:36)
[2021-07-06 15:47] LABS: MANUAL DIFF FLAG NO
[2021-07-06 15:50] LABS: Basophils Percent Auto 0.6 % (0-2); Eosinophils Absolute Auto 0.1 X10*3/uL (0.0-0.4); Eosinophils Percent Auto 1.6 % (0-4); Hematocrit 39.6 % (42.0-52.0); Hemoglobin 12.8 g/dl (14.0-18.0); Imm Gran Abs Auto 0.01 X10*3/uL (0.00-0.03); Imm Gran Pct Auto 0.1 % (0.0-0.4); Lymphocytes Percent Auto 14.4 % (20-40); Mean Corpuscular HGB Conc 32.3 g/dl (31.0-36.0); Mean Corpuscular Hemoglobin 29.8 pg (27.0-33.0); Mean Corpuscular Volume 92.3 fL (80.0-98.0); Mean Platelet Volume 9.4 fL (9.4-12.4); Monocytes Absolute Auto 0.4 X10*3/uL (0.1-1.2); Monocytes Percent Auto 6.2 % (2-11); Neutrophils Absolute Auto 5.2 x10*3/uL (2.0-8.3); Neutrophils Percent Auto 77.1 % (45-73); Platelet Count 213 X10*3/uL (160-400); Red Blood Count 4.29 X10*6/uL (4.60-5.80); Red Cell Distribution Width 13.4 % (11.0-16.0); White Blood Count 6.7 X10*3/uL (4.8-10.8)
[2021-07-06 15:59] LABS: Ammonia 19 umol/L (13-55)
[2021-07-06 16:07] LABS: Anion Gap 10 (12-20); Blood Urea Nitrogen 13 mg/dL (9-16); Calcium 9.5 mg/dL (8.4-10.2); Carbon Dioxide 27 mmol/L (22-29); Chloride 108 mmol/L (96-108); Creatinine Clr Calc Pharmacy 86.9; Estimated Glomerular Filt Rate > 60; Glucose Random 84 mg/dL (60-115); Potassium 4.4 mmol/L (3.3-5.1); Sodium 141 mmol/L (135-145)
[2021-07-06 16:24] LABS: Valproate < 2.0 mcg/mL (50.0-100.0)
== END 2021-07-06 16:29 | disposition home or self-care (01) ==
PROVIDERS: Emergency Provider Student in an Organized Health Care Education/Training Program
DX: R51.9 Headache, unspecified (principal); F41.1 Generalized anxiety disorder; F11.90 Opioid use, unspecified, uncomplicated; F43.0 Acute stress reaction; E86.0 Dehydration; F12.90 Cannabis use, unspecified, uncomplicated; F17.200 Nicotine dependence, unspecified, uncomplicated; Z79.899 Other long term (current) drug therapy; Z71.6 Tobacco abuse counseling
CPT/HCPCS: 36415; 70450; 80048; 80164; 82140; 85025; 96361; 96374; 96375; 99283; 99284; J1885; J2765

== ENCOUNTER 2021-07-11 16:16 | Emergency (ER) | payer MEDICARE, MEDICAID, SELFPAY ==
--- NOTE | ~2021-07-11 | CT_ITS ---
EXAMINATION: CT HEAD WITHOUT CONTRAST CLINICAL INFORMATION: Headache. COMPARISON: CT head dated from 07/06/2021. TECHNIQUE: Contiguous axial imaging was performed from the skull base to vertex without intravenous administration of contrast. This CT examination was performed using dose optimization techniques as appropriate, variously including the following: *Automated exposure control *Adjustment of mA and/or kV according to patient size (this includes techniques or standardized protocols for targeted exams where dose is matched to indication/reason for exam; i.e. extremities or head) *Use of iterative reconstruction technique DLP: 888 mGy-cm FINDINGS: Redemonstration of aneurysm clips along the anterior communicating/[place] junction and the left middle cerebral artery. Stable appearing chronic postoperative changes following left frontoparietal craniotomy. Encephalomalacia and gliosis within the left temporal lobe and left frontal lobe with stable ex vacuo dilatation of the left lateral ventricle. There is no intracranial hemorrhage or acute edematous territorial infarction. No hydrocephalus, extra-axial collections, or midline shift. No significant soft tissue abnormality. No acute osseous abnormalities. CT/CT head/brain wo con IMPRESSION: No acute intracranial findings. Chronic postoperative findings and areas of encephalomalacia/gliosis as above.
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
[2021-07-11 16:35] VITALS: BP 113/87; PULSE 101; O2SAT 98
[2021-07-11 16:41] VITALS: BP 133/75; PULSE 86; RESP 18; TEMP 36.9; O2SAT 98; BMI 27.1
[2021-07-11] MEDS: 0.9 % Sodium Chloride 1,000 ML 999 ML IV (17:02)
[2021-07-11 17:06] VITALS: BP 131/77; PULSE 82; RESP 16; TEMP 36.8; O2SAT 96
[2021-07-11 17:07] LABS: MANUAL DIFF FLAG NO
[2021-07-11 17:08] LABS: Basophils Percent Auto 0.6 % (0-2); Eosinophils Absolute Auto 0.1 X10*3/uL (0.0-0.4); Eosinophils Percent Auto 1.9 % (0-4); Hematocrit 41.3 % (42.0-52.0); Hemoglobin 13.2 g/dl (14.0-18.0); Imm Gran Abs Auto 0.02 X10*3/uL (0.00-0.03); Imm Gran Pct Auto 0.3 % (0.0-0.4); Lymphocytes Absolute Auto 1.1 X10*3/uL (1.2-4.9); Lymphocytes Percent Auto 17.3 % (20-40); Mean Corpuscular Hemoglobin 29.6 pg (27.0-33.0); Mean Corpuscular Volume 92.6 fL (80.0-98.0); Mean Platelet Volume 9.5 fL (9.4-12.4); Monocytes Absolute Auto 0.6 X10*3/uL (0.1-1.2); Monocytes Percent Auto 8.7 % (2-11); Neutrophils Absolute Auto 4.6 x10*3/uL (2.0-8.3); Neutrophils Percent Auto 71.2 % (45-73); Platelet Count 237 X10*3/uL (160-400); Red Blood Count 4.46 X10*6/uL (4.60-5.80); Red Cell Distribution Width 13.5 % (11.0-16.0); White Blood Count 6.4 X10*3/uL (4.8-10.8)
--- NOTE | 2021-07-11 17:10 | PC.NURSE ---
Patient reports head pain, increased waknesss on right leg from baseline, and cough. Reports fumes in his house making him cough and not sleep.
[2021-07-11 17:21] LABS: Ethanol < 10 mg/dL
[2021-07-11 17:25] LABS: Alanine Aminotransferase 17 U/L (0-40); Albumin Level 4.3 g/dL (3.5-5.0); Alkaline Phosphatase 63 U/L (39-117); Anion Gap 13 (12-20); Aspartate Amino Transferase 13 U/L (5-37); Bilirubin Direct 0.3 mg/dL (0.0-0.5); Bilirubin Total 0.7 mg/dL (0.0-1.0); Blood Urea Nitrogen 21 mg/dL (9-16); Calcium 10.1 mg/dL (8.4-10.2); Carbon Dioxide 25 mmol/L (22-29); Chloride 109 mmol/L (96-108); Creatinine Clr Calc Pharmacy 72.8; Estimated Glomerular Filt Rate > 60; Glucose Random 95 mg/dL (60-115); Potassium 3.9 mmol/L (3.3-5.1); Sodium 143 mmol/L (135-145); Total Protein 6.9 g/dL (6.5-8.0)
[2021-07-11 17:29] LABS: Valproate < 2.0 mcg/mL (50.0-100.0)
[2021-07-11] MEDS: Acetaminophen 325 MG TABLET 975 MG PO (17:45)
[2021-07-11] MEDS: Ketorolac Tromethamine 30 MG/ML VIAL IVPUSH (17:45)
[2021-07-11 17:56] VITALS: BP 130/80; PULSE 84; RESP 16; TEMP 36.8; O2SAT 98
== END 2021-07-11 19:40 | disposition home or self-care (01) ==
PROVIDERS: Emergency Provider Emergency Medicine Emergency Medical Services
DX: G25.3 Myoclonus (principal); R51.9 Headache, unspecified; Z79.899 Other long term (current) drug therapy
CPT/HCPCS: 36415; 70450; 80048; 80076; 80164; 82077; 85025; 96361; 96374; 99284; J1885

== ENCOUNTER 2021-07-16 21:29 | Emergency (ER) | payer MEDICARE, MEDICAID, SELFPAY ==
--- NOTE | ~2021-07-16 | CT_ITS ---
EXAMINATION: CT HEAD WITHOUT CONTRAST CLINICAL INFORMATION: Severe headache COMPARISON: 07/11/2021 TECHNIQUE: Contiguous axial imaging was performed from the skull base to vertex without intravenous administration of contrast. This CT examination was performed using dose optimization techniques as appropriate, variously including the following: *Automated exposure control *Adjustment of mA and/or kV according to patient size (this includes techniques or standardized protocols for targeted exams where dose is matched to indication/reason for exam; i.e. extremities or head) *Use of iterative reconstruction technique DLP: 808 mGy-cm FINDINGS: Suboptimal assessment in some regions due to motion artifact. There is no evidence of acute intracranial hemorrhage or territorial infarction. No abnormal mass effect or midline shift is seen. [place] to white matter differentiation is well preserved. No extra-axial fluid collections are identified. Prominence of the bilateral frontal horns is similar to prior. Redemonstrated aneurysm clips in the region of the anterior communicating artery and left middle cerebral artery. Redemonstrated regions of chronic infarct in the high left frontal lobe and inferior left temporal lobe. There is mild periventricular white matter hypoattenuation consistent with chronic small vessel ischemic disease. Mild volume loss is noted. No acute osseous findings. Left craniotomy changes redemonstrated. The mastoid air cells and visualized portions of the paranasal sinuses are well aerated. CT/CT head/brain wo con IMPRESSION: No acute intracranial pathology. Stable chronic findings as described above.
[2021-07-16 21:41] VITALS: BP 138/72; BP 156/72; PULSE 77; PULSE 81; RESP 16; TEMP 36.1; O2SAT 95; O2SAT 96; BMI 27.1
--- NOTE | 2021-07-16 22:21 | ED_ITS ---
HPI - Psych General Chief Complaint: Psychiatric Symptoms Stated Complaint: CRISIS Time Seen by Provider: 07/16/21 22:21 Source: patient Mode of arrival: ambulatory Limitations: no limitations History of Present Illness HPI Narrative: This 65-year-old male with past medical history of CVA, HTN, migraines, seizures. Presenting to the emergency department for evaluation of paranoia patient complains of nausea, headache, and chest pain. Patient was brought in by ambulance after the patient called 911 because he believed his neighbors are ?blowing does into his apartment ?. He tells me his upstairs neighbor is always using a foul smelling powder and he thinks this is from malicious intent. He tells me he is call the police about this before, they gave him a respirator and told him to wear it. He denies visual, auditory and tactile hallucinations. Denies drugs alcohol tobacco. Patient also denies suicide and homicidal ideation. Patient tells me that he has a diffuse headache, unable pinpoint he also reports substernal nonradiating chest pain as well as nausea. Denies any other medical complaints MD complaint: other (Paranoia ) Onset (ago): day(s) (1) Duration: constant History of same: No Relieving factors: none Exacerbating factors: none Associated psychiatric symptoms: none Associated symptoms: denies other symptoms Treatments prior to arrival: none Related Data Home Medications Medication Instructions Recorded Confirmed atenolol 50 mg tablet 50 mg PO DAILY 07/21/20 chlorthalidone 50 mg tablet 50 mg PO DAILY 07/21/20 diltiazem HCl 120 mg 120 mg PO DAILY 07/21/20 capsule,extended release 24 hr fluoxetine 20 mg capsule 40 mg PO DAILY 07/21/20 folic acid 1 mg tablet 1 mg PO DAILY 07/21/20 gabapentin 300 mg capsule 300 mg PO BEDTIME 07/21/20 lisinopril 20 mg tablet 20 mg PO DAILY 07/21/20 multivitamin 1 tab PO DAILY 07/21/20 thiamine HCl (vitamin B1) 100 mg 100 mg PO DAILY 07/21/20 tablet (Vitamin B-1) zolpidem 10 mg tablet (Ambien) 10 mg PO BEDTIME 07/21/20 Previous Rx's Medication Instructions Recorded divalproex 500 mg tablet,delayed 500 mg PO BID 30 Days #60 tab 10/23/20 release (Depakote) Allergies Allergy/AdvReac Type Severity Reaction Status Date / Time No Known Allergies Allergy Verified 07/06/21 13:05 Review of Systems Review of Systems: Constitutional : No Fever, No Chills ENT/Mouth : No Ear Pain, No Nasal Congestion, No sore throat Eyes: No Eye Pain, No Swelling, No Redness Cardiovascular : + Chest Pain, No SOB Respiratory : No Cough, No Sputum, No Dyspnea Gastrointestinal : + Nausea, No Vomiting, No Diarrhea, No Hematochezia, No Melena Genitourinary : No Dysuria, No Urinary Frequency, No Hematuria Musculoskeletal : No Myalgias Skin : No Skin Lesions, No rash Neuro : No Weakness, No Numbness, No Paresthesias, No Dizziness, + Headache Psych : positive Anxiety, No Depression, No SI/HI Yes all other systems are reviewed and are negative [facility] Past Medical History Attestation statement: The following information was validated with the patient. Source: old records reviewed and nursing notes reviewed Medical History CVA (cerebral vascular accident) HTN (hypertension) Migraines Seizure Surgical History H/O craniotomy Social History Social History Alcohol intake: never Patient Tobacco Use Status: Never used Tobacco Substance Use Type: Marijuana and Opiates Advance Directives: No Advance Directives Information Provided: No Physical Exam Vital Signs: Vital Signs: Last Vital Signs Temp 97.2 F 07/17/21 00:00 Pulse 65 07/17/21 00:00 Resp 16 07/17/21 00:00 BP 114/58 L 07/17/21 00:00 Pulse Ox 99 07/17/21 00:00 BMI result Body Mass Index 27.1 VSS Appearance: Alert.? Oriented X3.? No acute distress.? Head: Normocephalic, atraumatic, no step-offs or deformities Eyes: Pupils equal, round and reactive to light.?EOMI. ENT: Pharynx normal.? Neck: Normal inspection.? Neck supple.? CVS: Normal heart rate and rhythm.? Pulses normal.? Respiratory: No respiratory distress.? Breath sounds normal.? Abdomen: Soft and nontender.? Skin: Skin warm and dry.? Normal skin color.? Normal skin turgor.? Extremities: No lower extremity edema.? No calf ttp. 5/5 strength to bilateral upper and lower extremities Back: No midline tenderness, no C-spine tenderness, full range of motion, no CVA tenderness bilaterally Neuro: Oriented X 3.?R. sided hemiparesis d/t previous cva. No sensory deficit. CN 2-12 intact. Normal finger to nose. Course Reevaluation(s) Reevaluation #1: Patient screaming at staff members, refusing labs, EKG. Time: 23:53 Reevaluation #2: Patient continues to refuse laboratory studies at this time. EKG nonischemic. CT of the head and brain with no acute intracranial pathology. Patient ambulating without issues. Still refusing laboratory studies. Sign-out given to Time: 02:27 MDM - Psych MDM Narrative Medical decision making narrative: 2300 65 yo Patient presents with acute paranoia, cp, nausea, headache X1 day via ambulance Physical examination significant for right-sided hemiparesis this is patient's baseline due to CVA in the past. Normal oadoly-js-rgjp extraocular movements intact, no nystagmus. Regular rate and rhythm. Lungs clear. Abdomen soft nontender nondistended. Based off patient history and physical examination I do not suspect stroke, ICH, posterior infarct will r.o acs unlikely. History and physical examination not consistent for dissection. Plan at this time is medical clearance and psychiatric evaluation Medical Records Attestation: I reviewed the patient's medical records. Lab Data Attestation: I reviewed the patient's lab results. Labs: Lab Results 07/16/21 Range/Units 23:57 COVID-19 ([facility]I) Negative (Negative) COVID-19 Clin Com See Note Critical Care Time Critical Care Time Critical Care Time: No Discharge Plan Discharge Clinical Impression: Acute paranoia, Chest pain, Headache, Nausea Patient Disposition: Still a Patient Prescriptions: No Action multivitamin Tablet 1 tab PO DAILY 0RF lisinopril 20 mg Tablet 20 mg PO DAILY 0RF thiamine HCl (vitamin B1) [Vitamin B-1] 100 mg Tablet 100 mg PO DAILY 0RF chlorthalidone 50 mg Tablet 50 mg PO DAILY 0RF gabapentin 300 mg Capsule 300 mg PO BEDTIME 0RF diltiazem HCl 120 mg Capsule,Extended Release 24hr 120 mg PO DAILY 0RF folic acid 1 mg Tablet 1 mg PO DAILY 0RF zolpidem [Ambien] 10 mg Tablet 10 mg PO BEDTIME 0RF fluoxetine 20 mg Capsule 40 mg PO DAILY 0RF atenolol 50 mg Tablet 50 mg PO DAILY 0RF divalproex [Depakote] 500 mg tablet,delayed release (DR/EC) 500 mg PO BID 30 Days Qty: 60 0RF
--- NOTE | 2021-07-16 23:12 | ECG_ITS ---
Test Reason : PHYSIC Blood Pressure : / mmHG Vent. Rate : 069 BPM Atrial Rate : 069 BPM P-R Int : 176 ms QRS Dur : 100 ms QT Int : 410 ms P-R-T Axes : 017 -47 024 degrees QTc Int : 439 ms Normal sinus rhythm Left anterior fascicular block Abnormal ECG When compared with ECG of 23-OCT-2020 14:25, No significant change was found Referred By: Vonnie Mckeon Electronically Signed By:JF CARTWRIGHT MD
[2021-07-16] MEDS: Ketorolac Tromethamine 15 MG/ML VIAL 30 MG IM (23:24)
[2021-07-17] VITALS: BP 114/58; PULSE 65; RESP 16; TEMP 36.2; O2SAT 99
--- NOTE | 2021-07-17 00:04 | PC.NURSE ---
PATIENT REFUSED LABS ,NEDA MORTON AND BETO HALE AWARE .
[2021-07-17 00:15] LABS: COVID-19 Test Negative (Negative)
[2021-07-17 02:00] VITALS: BP 124/70; PULSE 82; RESP 16; TEMP 36.6; O2SAT 98
[2021-07-17 06:00] VITALS: BP 109/60; RESP 16; TEMP 36.6; O2SAT 98
[2021-07-17 06:47] LABS: Appearance Urine CLEAR; Color Urine YELLOW; Glucose Urine UA NEG (NEG); Leukocyte Esterase Urine NEG (NEG); Nitrite Urine NEG (NEG); PH 5.5 (5.0-8.0); Specific Gravity - Urine 1.025 (1.005-1.025); Urine Blood NEG (NEG); Urine Ketones 15 MG/DL (NEG); Urine Protein NEG (NEG-TRACE)
[2021-07-17 07:06] LABS: Amphetamine Screen Urine Not Detected (Not Detect); Barbiturates, Urine Not Detected (Not Detect); Benzodiazepines Screen Urine Not Detected (Not Detect); Cannabinoid Screen Urine POSITIVE (Not Detect); Cocaine Screen Urine POSITIVE (Not Detect); Fentanyl, urine Not Detected (Not Detect); Opiate Screen Urine Not Detected (Not Detect); Phencyclidine Screen Urine Not Detected (Not Detect)
--- NOTE | 2021-07-17 07:07 | PHA.MEDREC ---
Pharmacy Consult ? Medication Reconciliation Pharmacy has completed the medication reconciliation. CHECK OVERNIGHT MED REC
[2021-07-17 09:01] VITALS: BP 137/94; PULSE 81; RESP 18; O2SAT 97
[2021-07-17] MEDS: Aspirin Enteric Coated 81 MG TABLET.DR PO (09:10)
[2021-07-17] MEDS: lisinopriL 20 MG TABLET PO (09:10)
[2021-07-17] MEDS: dilTIAZem HCL CD 120 MG CAP.ER.DEG PO (09:11)
[2021-07-17] MEDS: Atorvastatin Calcium 40 MG TABLET PO (09:11)
--- NOTE | 2021-07-17 09:15 | PC.NURSE ---
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
[2021-07-17 11:41] VITALS: BP 104/57; PULSE 56; RESP 16; O2SAT 99
[2021-07-17 17:24] VITALS: BP 98/63; PULSE 63; RESP 18; O2SAT 96
--- NOTE | 2021-07-17 17:27 | PC.NURSE ---
pt a&ox3, vss, pt c/o 08/21 headache, dizziness and chest tightness. provider notified.
[2021-07-17] MEDS: Acetaminophen 325 MG TABLET 975 MG PO (17:48)
--- NOTE | 2021-07-17 17:49 | PC.NURSE ---
medicated per provider order.
[2021-07-17] MEDS: traZODone HCL 50 MG TABLET PO (21:21)
[2021-07-18 04:42] VITALS: BP 112/64; PULSE 72; RESP 16; TEMP 36.6; O2SAT 99
--- NOTE | 2021-07-18 06:34 | PC.NURSE ---
Patient slept though the night, no distress observed/reported, patient has right side weakness, gait unsteady use cane to walk require staff supervision due to risk of fall, medication compliant, disposition section 12 inpatient bed search, no update on bed search, VSS, will continue to monitor.
--- NOTE | 2021-07-18 07:45 | PC.NURSE ---
patient appears to remain asleep at present respirations are even and unlabored patient appears in no distress
[2021-07-18 08:03] VITALS: BP 110/77; PULSE 74; RESP 18; TEMP 36.5; O2SAT 99
[2021-07-18] MEDS: lisinopriL 20 MG TABLET PO (08:12)
[2021-07-18] MEDS: Aspirin Enteric Coated 81 MG TABLET.DR PO (08:48)
[2021-07-18] MEDS: Atorvastatin Calcium 40 MG TABLET PO (08:48)
[2021-07-18] MEDS: dilTIAZem HCL CD 120 MG CAP.ER.DEG PO (08:48)
--- NOTE | 2021-07-18 12:24 | PM.PSYCN ---
History of Present Illness Date of Service: 07/18/2021 Chief Complaint: CRISIS Reason for Consult: paranoia Sources of Information: patient interviewed, chart reviewed and crisis/core team assessment reviewed Additional Sources of Information: Spoke with daughter, Tuyet [phone] HPI Narrative: Mr. Ch is a 65 year old male who was brought in by police after he called them reporting that upstair neighbors were spreading some chemicals with intent to him kill. Today, pt presents as pleasant and polite. He reports he has heard voice while at apartment complex of a female saying he knows that we are video taping him. Pt reports that everywhere where he goes in his apartment he can hear neighbors following him. He also reports hearing voice of male saying he won't leave this building alive. Pt reports he suspects chemical they are putting in his apartment are causing brief periods of paralyzation where is difficult to walk or move momentarily. Pt tearful at times, he describes mood as fearful, very anxious. He asks this process description writer wouldn't you feel this way if someone is trying to hurt you? When asked about suicidal ideation, pt reports he wouldn't hurt himself, but becomes tearful thinking about losses in his life. He reports he lost his mother about 2 months ago and she was very close to him. He states he talked with his mother daily even thought she was in [place]. He also reports his son was murdered several years ago. However, his most pressing concern at this time is related to ideas that neighbors are trying to kill him and he does not know how to protect himself. He reports he feels terrified about going back to his apartment completed. Collateral information gathered from his daughter; Tuyet who reports paranoia has been going on for the past 9-10 months. However, Tuyet reports she lives in [place] and her brother may have more information about him. Also, pt has HCP, family to bring papers. Past Psychiatric History: Inpatient: 2019- due to SI OP: [facility] Past trials: unknown Medical Evaluation Reviewed: Yes [facility] Medical History CVA (cerebral vascular accident) HTN (hypertension) Migraines Seizure Surgical History (Reviewed 07/16/21 @ 23:03 by SAILAJA Torres H/O craniotomy Family History: unknown Social History: lives alone. Born in [place]. Daughter Tuyet in [place] and son Olivier in [place]. Substance History: `none Trauma History: none Diagnostics Vital Signs (24Hr): Vital Signs - 24 hr 07/17/21 17:24 07/18/21 04:42 07/18/21 08:03 Temperature 97.8 F 97.7 F Pulse Rate 63 72 74 Respiratory Rate 18 16 18 Blood Pressure 98/63 112/64 110/77 Pulse Oximetry 96 99 99 BMI result Body Mass Index 27.1 Labs Labs: Laboratory Results - last 48 hr 07/16/21 07/17/21 07/17/21 23:57 06:43 06:43 Urine Color YELLOW Urine Appearance CLEAR Urine pH 5.5 Ur Specific [place] 1.025 Urine Protein NEG Urine Glucose (UA) NEG Urine Ketones 15 Urine Blood NEG Urine Nitrite NEG Ur Leukocyte Esterase NEG Urine Opiates Screen Not Detected Urine Fentanyl Screen Not Detected Ur Barbiturates Screen Not Detected Ur Phencyclidine Scrn Not Detected Ur Amphetamines Screen Not Detected U Benzodiazepines Scrn Not Detected Urine Cocaine Screen POSITIVE H U Marijuana (THC) Screen POSITIVE H COVID-19 ([facility]I) Negative COVID-19 Clin Com See Note Imaging Radiology Impressions: ITS Impressions Head CT 07/17/21 01:30 IMPRESSION: No acute intracranial pathology. Stable chronic findings as described above. Mental Status Exam Mental Status Exam Narrative: Appearance: wearing hospital gown, walking with cane, right side paresis with involuntary movement of right hand at times, fair hygiene in NAD Behavior: cooperative, polite psychomotor:sporadic involuntary jerk like movements on right hand, right side paresis s/s CVA Speech:clear, some delayed in response due to poor attention, loosing track of conversation at times, spontaneous Thought process:tangential Thought content:fearful of neighbors, very distressed due to paranoid delusions Mood: anxious Affect: congruent, fearful SI:none, hopeless due to paranoia HI:none VH/AH:+ female and +male telling him that they will hurt him Delusions:paranoid/persecutory delusions. Insight/judgment:impaired x 2. Memory/cog: alert, oriented to month, year, place, not situation as he thinks paranoia is real. Suspect underlying cognitive impairments- in attention, executive function, visuo spatial, recall but not formally tested. May benefit from MOCA. Medications Medications Current Medications Aspirin (Aspirin Enteric Coated 81 Mg Tablet.) 81 mg PO DAILY [facility] Last Admin: 07/18/21 08:48 Dose: 81 mg Documented by: Atorvastatin Calcium (Atorvastatin Calcium 40 Mg Tablet) 40 mg PO DAILY [facility] Last Admin: 07/18/21 08:48 Dose: 40 mg Documented by: Diltiazem HCl (Diltiazem Hcl Cd 120 Mg Cap.Er.Deg) 120 mg PO DAILY [facility]; Protocol Last Admin: 07/18/21 08:48 Dose: 120 mg Documented by: Lisinopril (Lisinopril 20 Mg Tablet) 20 mg PO DAILY [facility]; Protocol Last Admin: 07/18/21 08:12 Dose: 20 mg Documented by: Pharmacy Consult (Consult Rx Perform Med Rec) 1 each MISCELLANE ONCE PRN PRN Reason: Consult order Trazodone HCl (Trazodone Hcl 50 Mg Tablet) 50 mg PO BEDTIME [facility] Last Admin: 07/17/21 21:21 Dose: 50 mg Documented by: Allergies Allergies Allergy/AdvReac Type Severity Reaction Status Date / Time No Known Allergies Allergy Verified 07/06/21 13:05 Assessment & Plan Assessment & Plan (1) Psychosis: Status: Acute Code(s): F29 - Unspecified psychosis not due to a substance or known physiological condition Plan Mr. Ch is a 65 year-old brought by police due to paranoia of neighbors trying to kill him- for about one year. Pt reports hearing voices of female and male telling him that they will hurt him. Suspect paranoia may be related to neurocognitive disorder rather than primary psychiatric disorder. We discussed risks, benefits and alternative treatment options HCP- Mary Jo Garcia [phone] (family to bring HCP form to hospital). She agrees with treatment. PLAN 1. Pt in need of psychiatric admission for further safety, containment and stabilization. Care Team/ [facility] doing bed search. 2. Start risperidone 0.5mg po BID- monitor increase EPS 3. olanzapine 5mg po q6h prn agitation 4. remeron 15mg po qhs for sleep and mood. I spent __25____ minutes with the patient and/or on the patient floor today, greater than?50% of which was spent counseling/coordinating care.
[2021-07-18] MEDS: risperiDONE 0.5 MG TABLET PO ×2 (13:23→21:59)
[2021-07-18] MEDS: LORazepam 0.5 MG TABLET PO (13:23)
--- NOTE | 2021-07-18 13:38 | PC.NURSE ---
Pt seen at bedside today for individual OT intervention. Pt appeared alert, oriented x3, tearful at times, paranoid, but overall pleasant and willing to engage with in treatment. Pt engaged in conversation with this specification writer, stated that grooming and reading the bible were things that brought him peace and makes me feel good abut myself . Pt provided with Bible in [place] and reading glasses for him to use at his leisure in his room. COOPER assisted pt in cutting his nails as they appeared to be overgrown; pt not able to cut nails himself due to hx of stroke and R handed weakness. During conversation pt noted he doesn't want to be perceived as untrusting , but that situations with his neighbors made him that way at times. Pt verbalized feeling grateful at end of intervention.
--- NOTE | 2021-07-18 18:21 | PC.NURSE ---
t/w attempted to draw bloodwork on pt. pt explained with help of medical i d sales that he was stuck many many times at previous hospital and showed t/w bruises on arms from previous sticks. pt allowed t/w to attempt bloodwork once. attempt was not successful and pt refused reattempt. rn aware
[2021-07-18] MEDS: traZODone HCL 50 MG TABLET PO (21:59)
[2021-07-19 05:36] VITALS: BP 114/68; PULSE 70; RESP 16; TEMP 36.5; O2SAT 99
--- NOTE | 2021-07-19 06:28 | PC.NURSE ---
Patient slept through the night, no distress observed/reported, responded well on Risperidone 0.5 mg started yesterday, patient is on section 12 disposition inpatient bed search by TAMIE, RAMILA, behavior non concerning, will continue to monitor.
--- NOTE | 2021-07-19 08:03 | PC.NURSE ---
patient appears to remain asleep at present respirations are even and unlabored patient appears in no distress
[2021-07-19 08:10] VITALS: BP 116/74; PULSE 60; RESP 19; TEMP 36.6; O2SAT 99
[2021-07-19] MEDS: risperiDONE 0.5 MG TABLET PO ×2 (08:41→21:56)
[2021-07-19] MEDS: Atorvastatin Calcium 40 MG TABLET PO (08:41)
[2021-07-19] MEDS: dilTIAZem HCL CD 120 MG CAP.ER.DEG PO (08:41)
[2021-07-19] MEDS: Aspirin Enteric Coated 81 MG TABLET.DR PO (08:41)
[2021-07-19] MEDS: lisinopriL 20 MG TABLET PO (08:42)
[2021-07-19] MEDS: Acetaminophen 325 MG TABLET 650 MG PO (10:59)
--- NOTE | 2021-07-19 12:03 | P.CNPS_ITS ---
History of Present Illness Date of Service: 07/19/2021 Chief Complaint: CRISIS Reason for Consult: paranoia Sources of Information: patient interviewed, chart reviewed and crisis/core team assessment reviewed HPI Narrative: Interim HX: Per nursing report, pt slept through the night. Pt reports feeling slightly less anxious. However, continues to report neighbors going after him and expresses feeling of fearful them and returning to his apartment. He states I'm not crazy! Pt taking low dose risperidone. No side effects noted or reported. No behavioral concerns while in the ED. He denies VH/AH. Past Psychiatric History: Inpatient: due to SI OP: [facility] Past trials: unknown Medical Evaluation Reviewed: Yes Review of Systems Review of Systems Constitutional : No Fever, No Chills ENT/Mouth : No Ear Pain, No Nasal Congestion, No sore throat Eyes: No Eye Pain, No Swelling, No Redness Cardiovascular : + Chest Pain, No SOB Respiratory : No Cough, No Sputum, No Dyspnea Gastrointestinal : + Nausea, No Vomiting, No Diarrhea, No Hematochezia, No Melena Genitourinary : No Dysuria, No Urinary Frequency, No Hematuria Musculoskeletal : No Myalgias Skin : No Skin Lesions, No rash Neuro : No Weakness, No Numbness, No Paresthesias, No Dizziness, + Headache Psych : positive Anxiety, No Depression, No SI/HI Yes all other systems are reviewed and are negative [facility] Medical History CVA (cerebral vascular accident) HTN (hypertension) Migraines Seizure Surgical History H/O craniotomy Family History: unknown Social History: lives alone. Born in [place]. Daughter Tuyet in [place] and son Olivier in [place]. Trauma History: none Diagnostics Vital Signs (24Hr): Vital Signs - 24 hr 07/20/21 01:02 07/20/21 08:11 Temperature 97.9 F 97.8 F Pulse Rate 68 76 Respiratory Rate 17 16 Blood Pressure 139/79 138/82 Pulse Oximetry 97 Oxygen Delivery Method Room Air Room Air BMI result Body Mass Index 27.1 Imaging Radiology Impressions: ITS Impressions Head CT 07/17/21 01:30 IMPRESSION: No acute intracranial pathology. Stable chronic findings as described above. Mental Status Exam Mental Status Exam Narrative: Appearance: wearing hospital gown, walking with cane, right side paresis with involuntary movement of right hand at times, fair hygiene in NAD Behavior: cooperative, polite psychomotor:sporadic involuntary jerk like movements on right hand, right side paresis s/s CVA Speech:clear, some delayed in response due to poor attention, loosing track of conversation at times, spontaneous Thought process:tangential Thought content:fearful of neighbors, very distressed due to paranoid delusions Mood: anxious Affect: congruent, fearful SI:none, hopeless due to paranoia HI:none VH/AH:+ female and +male telling him that they will hurt him Delusions:paranoid/persecutory delusions. Insight/judgment:impaired x 2. Memory/cog: alert, oriented to month, year, place, not situation as he thinks paranoia is real. Suspect underlying cognitive impairments- in attention, executive function, visuo spatial, recall but not formally tested. May benefit from MOCA. Medications Medications Current Medications Aspirin (Aspirin Enteric Coated 81 Mg Tablet.Dr) 81 mg PO DAILY [facility] Last Admin: 07/20/21 08:11 Dose: 81 mg Atorvastatin Calcium (Atorvastatin Calcium 40 Mg Tablet) 40 mg PO DAILY [facility] Last Admin: 07/20/21 08:11 Dose: 40 mg Diltiazem HCl (Diltiazem Hcl Cd 120 Mg Cap.Er.Deg) 120 mg PO DAILY [facility]; Protocol Last Admin: 07/20/21 08:11 Dose: 120 mg Lisinopril (Lisinopril 20 Mg Tablet) 20 mg PO DAILY [facility]; Protocol Last Admin: 07/20/21 08:11 Dose: 20 mg Pharmacy Consult (Consult Rx Perform Med Rec) 1 each MISCELLANE ONCE PRN PRN Reason: Consult order Risperidone (Risperidone 0.5 Mg Tablet) 0.5 mg PO BID [facility] Last Admin: 07/20/21 08:11 Dose: 0.5 mg Trazodone HCl (Trazodone Hcl 50 Mg Tablet) 50 mg PO BEDTIME [facility] Last Admin: 07/19/21 21:55 Dose: 50 mg Allergies Allergies Allergy/AdvReac Type Severity Reaction Status Date / Time No Known Allergies Allergy Verified 07/06/21 13:05 Assessment & Plan Assessment & Plan (1) Psychosis: Status: Acute Code(s): F29 - Unspecified psychosis not due to a substance or known physiological condition Plan Mr. Ch is a 65 year-old brought by police due to paranoia of neighbors trying to kill him- for about one year. Pt reports hearing voices of female and male telling him that they will hurt him. Suspect paranoia may be related to neurocognitive disorder rather than primary psychiatric disorder. We discussed risks, benefits and alternative treatment options HCP- Mary Jo Garcia [phone] (family to bring HCP form to hospital). She agrees with treatment. PLAN 1. Pt in need of psychiatric admission for further safety, containment and stabilization. Care Team/ [facility] doing bed search. 2. Start risperidone 0.5mg po BID- monitor increase EPS 3. olanzapine 5mg po q6h prn agitation 4. remeron 15mg po qhs for sleep and mood. 07/19- continue current medications: risperidone 0.5mg po BID, remeron 15mg po qhs. Continues to be [facility] psych bed. I spent __25____ minutes with the patient and/or on the patient floor today, greater than?50% of which was spent counseling/coordinating care.
--- NOTE | 2021-07-19 14:46 | PC.NURSE ---
Pt seen this date for individual OT tx session. Treatment with focus on pt interests as well as attending to personal hygiene as pt expresses pride in his appearance. Pts cobb washed and shaved this date. Pt provided with reading glasses, independent reading, and the lords prayer (in Peruvian). Pt is able to see and read text as reported by Peruvian speaking staff member providing translation. Pt expresses gratitude for all activities and items presented on this day. Pt presents bright, alert, and cheerful.
[2021-07-19] MEDS: traZODone HCL 50 MG TABLET PO (21:55)
[2021-07-20 01:02] VITALS: BP 139/79; PULSE 68; RESP 17; TEMP 36.6
--- NOTE | 2021-07-20 06:44 | PC.NURSE ---
Patient slept through the night, no distress observed/reported, disposition per [facility] is section 12 inpatient bed search, behavior appropriate, gait unsteady but independent in ambulation, medication compliant, VSS, will continue to monitor.
--- NOTE | 2021-07-20 07:28 | PC.NURSE ---
patient appears awake for the day but [id number] respirations are even and unlabored patient appears in no distress
[2021-07-20 08:11] VITALS: BP 138/82; PULSE 76; RESP 16; TEMP 36.6; O2SAT 97
[2021-07-20] MEDS: lisinopriL 20 MG TABLET PO (08:11)
[2021-07-20] MEDS: risperiDONE 0.5 MG TABLET PO (08:11)
[2021-07-20] MEDS: dilTIAZem HCL CD 120 MG CAP.ER.DEG PO (08:11)
[2021-07-20] MEDS: Aspirin Enteric Coated 81 MG TABLET.DR PO (08:11)
[2021-07-20] MEDS: Atorvastatin Calcium 40 MG TABLET PO (08:11)
--- NOTE | 2021-07-20 14:56 | PC.NURSE ---
Pt participated on Blind MoCA screen on this date. Pt unable to participate in regular MoCA due to hx of stroke and pt unable to use dominant hand for writing. Pt scored 12/22, indicating cognition is below normal limits. Nurse and LENS GENERATING MACHINE TENDER made aware of results.
[2021-07-20 15:43] LABS: COVID-19 Test Negative (Negative); IDNOW Serial# 9DD0AD1C
== END 2021-07-20 21:48 ==
PROVIDERS: Nurse Practitioner Family; Physician Assistant; Emergency Provider Emergency Medicine
DX: F29 Unspecified psychosis not due to a substance or known physiological condition (principal); F22 Delusional disorders; R07.89 Other chest pain; R51.9 Headache, unspecified; R11.0 Nausea; Z20.822 Contact with and (suspected) exposure to COVID-19; Z79.899 Other long term (current) drug therapy
CPT/HCPCS: 70450; 80307; 81003; 87635; 93005; 99285; J1885

== ENCOUNTER 2021-08-17 00:02 | Emergency (ER) | payer MEDICARE, MEDICAID, SELFPAY ==
[2021-08-17 00:15] VITALS: BP 139/96; BP 162/90; PULSE 88; PULSE 92; RESP 16; O2SAT 97; BMI 27.0
--- NOTE | 2021-08-17 00:22 | ED.GENADULT ---
HPI - General Adult General Chief complaint: General Medical Stated complaint: etoh Time Seen by Provider: 08/17/21 00:17 Source: patient Mode of arrival: EMS Limitations: no limitations History of Present Illness HPI narrative: Patient history of hypertension Blood pressure medicine today had few drinks and had large cup of coffee started feeling funny with right-sided numbness called the EMS he thinks his blood pressure is high. Blood pressure on arrival was 139/96 a blood pressure of 136/83 Related Data Home Medications Medication Instructions Recorded Confirmed diltiazem HCl 120 mg 120 mg PO DAILY 07/21/20 07/17/21 capsule,extended release 24 hr lisinopril 20 mg tablet 20 mg PO DAILY 07/21/20 07/17/21 aspirin 81 mg tablet,delayed 1 tab PO DAILY 07/17/21 07/17/21 release atorvastatin 40 mg tablet 1 tab PO DAILY 07/17/21 07/17/21 trazodone 50 mg tablet 1 tab PO BEDTIME 07/17/21 07/17/21 Allergies Allergy/AdvReac Type Severity Reaction Status Date / Time No Known Allergies Allergy Verified 07/06/21 13:05 Review of Systems Review of Systems: Yes all other systems are reviewed and are negative [facility] Past Medical History Medical History CVA (cerebral vascular accident) HTN (hypertension) Migraines Seizure Surgical History H/O craniotomy Social History Social History Alcohol intake: never Patient Tobacco Use Status: Never used Tobacco Substance Use Type: Marijuana Advance Directives: No Physical Exam ED Vital Signs: Vital Signs - 24 hr 08/17/21 00:15 Pulse Rate 88 Respiratory Rate 16 Blood Pressure 139/96 H Pulse Oximetry 97 Oxygen Delivery Method Room Air BMI result Body Mass Index 27.0 Appearance: Alert. Oriented X3. No acute distress. Eyes: PERRLA, No Nystagmus ENT: Pharynx normal. Oral Mucosa moist Neck: Normal inspection. Neck supple. CVS: Normal heart rate and rhythm. Pulses normal. Respiratory: No respiratory distress. Equal air entry bilateral, no wheezing/rales/rhonchi Abdomen: Soft and nontender. Bowel sounds are present, no mass palpable, no CVA tenderness Skin: Skin warm and dry. Normal skin color. Normal skin turgor. Extremities: No lower extremity edema. No calf tenderness Neuro: Oriented X 3. Right-sided residual weakness Medical Decision Making MDM Narrative Medical decision making narrative: Patient with nonspecific complaints blood pressure recheck was 136/83 no need to give blood pressure medication at this time at night he can take the blood pressure medicine in the a.m. as scheduled Discharge Plan Discharge Clinical Impression: Hypertension Patient Disposition: Home, Self-Care Instructions: Chronic Hypertension (ED) Additional Instructions: Resume your medications as prescribed for blood pressure Your blood pressure is normal at this time Prescriptions: No Action lisinopril 20 mg Tablet 20 mg PO DAILY diltiazem HCl 120 mg Capsule,Extended Release 24hr 120 mg PO DAILY atorvastatin 40 mg tablet 1 tab PO DAILY trazodone 50 mg tablet 1 tab PO BEDTIME aspirin 81 mg tablet,delayed release (DR/EC) 1 tab PO DAILY
--- NOTE | 2021-08-17 00:24 | PC.NURSE ---
Provider in to assess pt. pt requesting blood pressure medication. pt provider after assessment pt does not need a dose of medication here. Provider will like him to take home medication tomorrow morning pt will be discharged home.
--- NOTE | 2021-08-17 01:02 | PC.NURSE ---
Reviewed discharge instructions with pt. pt verbalized understanding. Notified BETO Monroy. Pt discharged to waiting room.
== END 2021-08-17 01:04 | disposition home or self-care (01) ==
PROVIDERS: Emergency Provider Internal Medicine
DX: I10 Essential (primary) hypertension (principal); F12.90 Cannabis use, unspecified, uncomplicated; Z86.73 Personal history of transient ischemic attack (TIA), and cerebral infarction without residual deficits
CPT/HCPCS: 99282

== ENCOUNTER 2022-08-30 16:08 | Emergency (ER) | payer MEDICARE, MEDICAID, SELFPAY ==
--- NOTE | ~2022-08-30 | CT_ITS ---
EXAMINATION: CT HEAD WITHOUT CONTRAST CLINICAL INFORMATION: Altered mental status. History of cerebrovascular accident. COMPARISON: CT head 07/17/2021. TECHNIQUE: Contiguous axial imaging was performed from the skull base to vertex without intravenous administration of contrast. This CT examination was performed using dose optimization techniques as appropriate, variously including the following: *Automated exposure control *Adjustment of mA and/or kV according to patient size (this includes techniques or standardized protocols for targeted exams where dose is matched to indication/reason for exam; i.e. extremities or head) *Use of iterative reconstruction technique DLP: 785 mGy-cm FINDINGS: There are chronic postcraniotomy changes related to the open repair of multiple intracranial aneurysms. There is gliosis and encephalomalacia involving the left anterior temporal lobe and the left precentral gyrus. There is also loss of parenchymal volume within both frontal lobes with corresponding ex vacuo enlargement of the lateral ventricles. No acute hemorrhage or abnormal extra-axial collection. No intracranial mass effect or midline shift. No evidence of acute territorial infarct. The skull base is intact. No mastoid or middle ear effusion. No active paranasal sinus disease. CT/CT head/brain wo IV con IMPRESSION: There are chronic postcraniotomy changes related to the open repair of multiple intracranial aneurysms. There is gliosis and encephalomalacia involving the left anterior temporal lobe and the left precentral gyrus. There is also loss of parenchymal volume within both frontal lobes with corresponding ex vacuo enlargement of the lateral ventricles. Grossly no evidence of acute territorial infarct or hemorrhage.
[2022-08-30 16:32] VITALS: BP 130/80; BP 136/90; PULSE 59; RESP 20; TEMP 36.8; O2SAT 95; O2SAT 96; BMI 28.5
--- NOTE | 2022-08-30 17:29 | ECG_ITS ---
Test Reason : Headache Blood Pressure : / mmHG Vent. Rate : 058 BPM Atrial Rate : 058 BPM P-R Int : 180 ms QRS Dur : 090 ms QT Int : 418 ms P-R-T Axes : 011 -47 007 degrees QTc Int : 410 ms Sinus bradycardia Left anterior fascicular block Abnormal ECG When compared with ECG of 16-JUL-2021 23:31, No significant change was found Referred By: Remi Urbina Electronically Signed By:Marty Adair
--- NOTE | 2022-08-30 18:00 | ED.GENADULT ---
HPI - General Adult General Chief complaint: General Medical Stated complaint: AMS/Hearing Voices Time Seen by Provider: 08/30/22 17:12 Source: patient Limitations: no limitations History of Present Illness HPI narrative: 66-year-old male with history of CVA presents for evaluation of headache, dizziness and chest pain. Symptoms started yesterday. They are intermittent. As far as his headache goes, does a generalized headache. Associated with photophobia, phonophobia, nausea. Patient rates the pain as a 5/10. The pain does not radiate. There is no neck pain or stiffness. There is no sudden onset headache. It is also associated with dizziness. Describes the dizziness as the room spinning. There is no clear relieving or exacerbating features. Patient denies a history of dizziness however, he describes that some of the symptoms could be consistent with his previous history of stroke. Patient is also been experiencing 2 or 3 days of intermittent chest pain. Chest pain is substernal. He describes it as achy nature. Does not radiate. It is not worsened by exertion. There is no nausea vomiting or shortness of breath with this. He describes this pain as mild. He currently denies any chest pain whatsoever. Related Data Home Medications Medication Instructions Recorded Confirmed diltiazem HCl 120 mg 120 mg PO DAILY 07/21/20 07/17/21 capsule,extended release 24 hr lisinopril 20 mg tablet 20 mg PO DAILY 07/21/20 07/17/21 aspirin 81 mg tablet,delayed 1 tab PO DAILY 07/17/21 07/17/21 release atorvastatin 40 mg tablet 1 tab PO DAILY 07/17/21 07/17/21 trazodone 50 mg tablet 1 tab PO BEDTIME 07/17/21 07/17/21 Previous Rx's Medication Instructions Recorded meclizine 25 mg tablet 25 mg PO TID PRN dizziness #7 tabs 08/30/22 Allergies Allergy/AdvReac Type Severity Reaction Status Date / Time No Known Allergies Allergy Verified 07/06/21 13:05 Review of Systems Review of Systems: CONSTITUTIONAL: Denies weight loss, fever and chills. HEENT: Denies changes in vision and hearing. RESPIRATORY: Denies SOB and cough. CV: Denies palpitations + CP. GI: Denies abdominal pain, nausea, vomiting and diarrhea. : Denies dysuria and urinary frequency. MSK: Denies myalgia and joint pain. SKIN: Denies rash and pruritus. NEUROLOGICAL: + headache - syncope. PSYCHIATRIC: Denies recent changes in mood. Denies anxiety and depression. All other ROS are negative unless in HPI PMFSH Past Medical History Medical History CVA (cerebral vascular accident) HTN (hypertension) Migraines Seizure Surgical History H/O craniotomy Social History Social History Alcohol intake: never Patient Tobacco Use Status: Never used Tobacco Substance Use Type: Marijuana Advance Directives: No Advance Directives Information Provided: Yes Physical Exam ED Vital Signs: Vital Signs - 24 hr 08/30/22 16:32 Temperature 98.3 F Pulse Rate 59 Respiratory Rate 20 Blood Pressure 136/90 H Pulse Oximetry 96 Oxygen Delivery Method Room Air BMI result Body Mass Index 28.5 GEN: Well developed, no acute distress, alert, oriented HEENT: Normocephalic, atraumatic, normal external ears, nose appears normal, no oropharyngeal edema or exudates Eyes: Normal to appearance Neck: Supple, no lymphadenopathy Respiratory: Talks in complete sentences, no respiratory distress, clear to auscultation bilaterally Cardiovascular: Regular rate and rhythm, no murmurs rubs or gallops Abdomen: Soft, nontender, nondistended, no guarding, no rebound Back: No CVA tenderness Extremities: No clubbing cyanosis or edema Neurologic: No focal neurologic deficits, cranial nerves 2-12 intact, strength is 5/5 bilaterally Skin: No rash Course Reevaluation(s) Reevaluation #1: I received patient's medical records from [facility]. I am currently reviewing them. Per report, there apparently have been some change in his behavioral status. Typically he is been, cooperative. However, towards the end of July he was tapered down on his Zyprexa in. Did. He also stop trazodone. He has had increasing insomnia and combativeness with agitation. He has been found wandering the halls. Patient also been complaining of headache, dizziness and chest pain. His cardiac enzymes are negative. He had a normal chest x-ray. No imaging studies were performed. Time: 18:07 Reevaluation #2: Patient is feeling much better at this time. CT scan did not identify acute abnormalities. Patient is ambulating well. He is acting appropriately. Will discharge back to facility. Patient was given Zyprexa 5 mg already. Time: 21:27 Medications Administered Discontinued Medications Generic Name Dose Route Start Last Admin Trade Name Mirella PRN Reason Stop Dose Admin Acetaminophen 975 mg 08/30/22 17:31 08/30/22 18:43 Acetaminophen 325 Mg Tablet PO 08/30/22 17:32 975 mg ONCE ONE Administration Meclizine HCl 25 mg 08/30/22 17:31 08/30/22 18:44 Meclizine Hcl 25 Mg Tablet PO 08/30/22 17:32 25 mg ONCE ONE Administration Olanzapine 5 mg 08/30/22 20:46 08/30/22 21:19 Olanzapine 5 Mg Tablet PO 08/30/22 20:47 5 mg ONCE ONE Administration Ondansetron HCl 4 mg 08/30/22 17:31 08/30/22 18:45 Ondansetron Odt 4 Mg Tab.Rapdis TRANSLINGU 08/30/22 17:32 4 mg ONCE ONE Administration Medical Decision Making Medical Decision Making [facility] Narrative: Patient presents with headache, chest pain, dizziness. Differential diagnosis could include vertigo, migraine headache, tension headache, cluster headache, dehydration, electrolyte abnormality, anemia. Possible mass effect. Will order CT scan of the head. Reviewed his lab work and workup at [facility] yesterday. His cardiac enzymes are negative. Can repeat this today given his intermittent chest pain which is quite atypical. Doubt cardiac etiology. Oral Differential Diagnosis Differential Diagnoses: The differential diagnosis associated with the presentation includes (See above) Admission/Observation Consideration of admission/observation: Escalation of care including admission/observation considered Lab Data [facility] Lab Attestation statement: I reviewed the patient's lab results. 08/30/22 19:03 08/30/22 19:02 Labs: Lab Results 08/30/22 08/30/22 08/30/22 Range/Units 18:36 19:03 19:03 WBC 5.6 (4.8-10.8) X10*3/uL RBC 4.30 L (4.60-5.80) X10*6/uL Hgb 12.6 L (14.0-18.0) g/dl Hct 39.4 L (42.0-52.0) % MCV 91.6 (80.0-98.0) fL MCH 29.3 (27.0-33.0) pg MCHC 32.0 (31.0-36.0) g/dl RDW 13.6 (11.0-16.0) % Plt Count 203 (160-400) X10*3/uL MPV 10.5 (9.4-12.4) fL Immature Gran % (Auto) 0.5 H (0.0-0.4) % Neut % (Auto) 70.1 (45-73) % Lymph % (Auto) 18.2 L (20-40) % [place] % (Auto) 7.1 (2-11) % Eos % (Auto) 3.2 (0-4) % Baso % (Auto) 0.9 (0-2) % Lymph # (Auto) 1.0 L (1.2-4.9) X10*3/uL [place] # (Auto) 0.4 (0.1-1.2) X10*3/uL Eos # (Auto) 0.2 (0.0-0.4) X10*3/uL Baso # (Auto) 0.1 (0.0-0.2) X10*3/uL Abs Immat Gran (auto) 0.03 (0.00-0.03) X10*3/uL Absolute Neuts (auto) 3.9 (2.0-8.3) x10*3/uL Absolute Nucleated RBC 0.000 (0.0-0.012) X10*3/uL Nucleated RBC % (auto) 0.0 (0.0-0.2) /100WBC Troponin I High Sens < 2.7 (<3.5-35.0) ng/L Urine Color Yellow Urine Appearance Clear Urine pH 6.0 (5.0-9.0) Ur Specific [place] 1.015 (1.005-1.025) Urine Protein Negative (Neg-Trace) mg/dL Urine Glucose (UA) Negative (Negative) mg/dL Urine Ketones Negative (Negative) mg/dL Urine Blood Negative (Negative) Urine Nitrite Negative (Negative) Ur Leukocyte Esterase Negative (Negative) Independent Interpretation I performed an independent interpretation of an: EKG and CT Scan Radiology Impression Discussion of test interpretation with radiology: I have reviewed the radiologist's reading. (I independently reviewed the images. I agree with the radiologist's interpretation.) Radiologist Impression: CT/CT head/brain wo IV con IMPRESSION: There are chronic postcraniotomy changes related to the open repair of multiple intracranial aneurysms. There is gliosis and encephalomalacia involving the left anterior temporal lobe and the left precentral gyrus. There is also loss of parenchymal volume within both frontal lobes with corresponding ex vacuo enlargement of the lateral ventricles. Grossly no evidence of acute territorial infarct or hemorrhage. ? Dictated By: Colin Gonzalez MD Signed By: <Electronically signed by Colin Gonzalez MD in [place]> 08/30/222048 External Record Review External record reviewed: Outside ED record Tests considered The following testing was considered but not selected: MRI head Prescription Management I considered prescription management with: Pain Medication Discharge Plan Discharge Clinical Impression: Headache, Dizziness, Chest pain Patient Disposition: Home, Self-Care Instructions: Chest Pain (DC), Acute Headache (DC), Dizziness (ED) Prescriptions: New meclizine 25 mg tablet 25 mg PO TID PRN (Reason: dizziness) Qty: 7 0RF No Action lisinopril 20 mg Tablet 20 mg PO DAILY diltiazem HCl 120 mg Capsule,Extended Release 24hr 120 mg PO DAILY atorvastatin 40 mg tablet 1 tab PO DAILY trazodone 50 mg tablet 1 tab PO BEDTIME aspirin 81 mg tablet,delayed release (DR/EC) 1 tab PO DAILY Referrals: Physician,Unknown J [Primary Care Provider] - (Primary care provider within 1 week) Print Language: Estonian
[2022-08-30 18:42] LABS: Appearance Urine Clear; Color Urine Yellow; Glucose Urine UA Negative (Negative); Leukocyte Esterase Urine Negative (Negative); Nitrite Urine Negative (Negative); Specific Gravity - Urine 1.015 (1.005-1.025); Urine Blood Negative (Negative); Urine Ketones Negative (Negative); Urine Protein Negative (Neg-Trace)
[2022-08-30] MEDS: Acetaminophen 325 MG TABLET 975 MG PO (18:43)
[2022-08-30] MEDS: Meclizine HCl 25 MG TABLET PO (18:44)
[2022-08-30] MEDS: Ondansetron ODT 4 MG TAB.RAPDIS TRANSLINGU (18:45)
--- NOTE | 2022-08-30 19:03 | PC.NURSE ---
assumed care of patent at 1900 - per previous RN 2 PCT's attempted blood draw but unsuccessful as pt is difficult stick. will alert provider.
--- NOTE | 2022-08-30 19:10 | MHC.EDTECH ---
Assumed care of pt at 1900 as medical technologist chemistry
--- NOTE | 2022-08-30 19:17 | PC.NURSE ---
phlebotomy came to obtain blood draw.
[2022-08-30 19:36] LABS: MANUAL DIFF FLAG NO
[2022-08-30 19:40] LABS: Basophils Absolute Auto 0.1 X10*3/uL (0.0-0.2); Basophils Percent Auto 0.9 % (0-2); Eosinophils Absolute Auto 0.2 X10*3/uL (0.0-0.4); Eosinophils Percent Auto 3.2 % (0-4); Hematocrit 39.4 % (42.0-52.0); Hemoglobin 12.6 g/dl (14.0-18.0); Imm Gran Abs Auto 0.03 X10*3/uL (0.00-0.03); Imm Gran Pct Auto 0.5 % (0.0-0.4); Lymphocytes Percent Auto 18.2 % (20-40); Mean Corpuscular Hemoglobin 29.3 pg (27.0-33.0); Mean Corpuscular Volume 91.6 fL (80.0-98.0); Mean Platelet Volume 10.5 fL (9.4-12.4); Monocytes Absolute Auto 0.4 X10*3/uL (0.1-1.2); Monocytes Percent Auto 7.1 % (2-11); Neutrophils Absolute Auto 3.9 x10*3/uL (2.0-8.3); Neutrophils Percent Auto 70.1 % (45-73); Platelet Count 203 X10*3/uL (160-400); Red Cell Distribution Width 13.6 % (11.0-16.0); White Blood Count 5.6 X10*3/uL (4.8-10.8)
[2022-08-30 19:59] LABS: Troponin-I High Sensitivity < 2.7 ng/L (<3.5-35.0)
[2022-08-30] MEDS: OLANZapine 5 MG TABLET PO (21:19)
[2022-08-30 21:41] LABS: Carbon Dioxide 22 mmol/L (22-29)
[2022-08-30 22:25] LABS: Anion Gap 13 (12-20); Blood Urea Nitrogen 13 mg/dL (9-16); Calcium 9.4 mg/dL (8.4-10.2); Chloride 112 mmol/L (96-108); Creatinine Clr Calc Pharmacy 102.3; Estimated Glomerular Filt Rate > 60; Glucose Random 83 mg/dL (60-115); Potassium 4.3 mmol/L (3.3-5.1); Sodium 141 mmol/L (135-145)
[2022-08-30 22:58] VITALS: BP 112/70; PULSE 60; RESP 17; TEMP 36.4; O2SAT 96
== END 2022-08-30 23:03 | disposition home or self-care (01) ==
PROVIDERS: Emergency Provider Emergency Medicine
DX: R51.9 Headache, unspecified (principal); R42 Dizziness and giddiness; R07.9 Chest pain, unspecified; I10 Essential (primary) hypertension; F12.90 Cannabis use, unspecified, uncomplicated; Z79.899 Other long term (current) drug therapy; Z86.73 Personal history of transient ischemic attack (TIA), and cerebral infarction without residual deficits
CPT/HCPCS: 36415; 70450; 80048; 81003; 84484; 85025; 93005; 99284

== ENCOUNTER → 2022-08-30 17:29 | Outpatient (BNV) | payer MEDICARE, MEDICAID, SELFPAY | PROVIDERS: Emergency Provider Emergency Medicine; Visit Provider Internal Medicine Cardiovascular Disease | DX: R07.9 Chest pain, unspecified (principal) | CPT/HCPCS: 93010 ==